=== PATIENT | male | born 1950 | race Caucasian/White ===

== ENCOUNTER → 2017-06-07 11:40 | Outpatient (CLI) | payer MEDICARE, OTHER, SELFPAY ==
[2017-06-07 13:32] LABS: PSA,Total- Diagnostic < 0.01 ng/mL (0.0-4.0)
== END ==
PROVIDERS: Family Provider Family Medicine Geriatric Medicine; PCP Family Medicine Geriatric Medicine; Visit Provider Urology
DX: C61 Malignant neoplasm of prostate (principal)
CPT/HCPCS: 36415; 84153

== ENCOUNTER → 2017-08-16 16:16 | Outpatient (CLI) | payer MEDICARE, OTHER, SELFPAY ==
[2017-08-16 16:53] LABS: Absolute Lymphocyte Count 0.72 X10^3/ul (0.83-4.51); Absolute Neutrophil Count 2.3 X10^3/uL (2.0-7.7); Basophil# 0.01 X10^3/uL; Basophil% 0.3 % (0-1); Eosinophil# 0.08 X10^3/uL; Eosinophils% 2.3 % (0-5); Hematocrit 39.5 % (40-54); Hemoglobin 12.8 g/dl (13.0-16.5); Lymphocyte # 0.72 X10^3/ul (4.0); Lymphocyte % 21.1 % (19-41); Mean Corp Hgb Conc 32.4 g/gl (32-36); Mean Corpuscular Hgb 30.9 pg (27.0-32.0); Mean Corpuscular Volume 95.4 fL (80-94); Mean Platelet Vol. 11.1 fl (6.2-12.0); Monocyte# 0.28 X10^3/uL; Monocyte% 8.2 % (0-10); Neutrophil # 2.32 X10^3/uL (2.7-7.7); Neutrophil % 67.8 % (47-70); Platelet Count 167 K/mm3 (150-450); RBC Distribution Width CV 13.8 % (11.6-14.6); RBC Distribution Width SD 46.1 fl (35.1-43.9); Red Blood Count 4.14 M/mm3 (4.6-6.2); White Blood Count 3.4 K/mm3 (4.4-11.0)
[2017-08-16 16:55] LABS: POSITIVE COUNT NO; POSITIVE DIFFERENTIAL NO; POSITIVE MORPHOLOGY NO
[2017-08-16 17:16] LABS: ALB/GLOB Ratio 1.1 RATIO (0.9-2.4); AST(SGOT) 20 U/L (15-37); Alanine Aminotransfer ALT/SGPT 25 U/L (16-61); Albumin, Serum 3.9 g/dL (3.2-5.0); Alkaline Phosphatase 116 U/L (45-117); Anion Gap 6 (5-15); BUN 20 mg/dL (7-18); BUN/Creat Ratio 23.6 RATIO (10-20); Calcium,Total 8.6 mg/dL (8.5-10.1); Chloride 105 mmol/L (98-107); Creatinine, Serum 0.85 mg/dL (0.70-1.30); EST Glomerular Filtration Rate 96 mL/min (>60); Est Glom Filt Rate - Afr Amer 117 mL/min (>60); Globulin 3.5 g/dL (2.2-4.2); Glucose 124 mg/dL (74-106); PSA,Total - Annual Screen < 0.01 ng/mL (0.00-4.00); Potassium 3.9 mmol/L (3.5-5.1); Protein, Total 7.4 g/dL (6.4-8.2); Sodium Level 141 mmol/L (136-145); Thyroid Stim Hormone (TSH) 1.37 uIU/mL (0.358-3.74)
[2017-08-16 17:32] LABS: Vitamin D,25 Hydroxy 24.1 ng/mL (29.95-100.01)
[2017-08-18 11:29] LABS: Hep C Antibodies <0.1 s/co ratio (0.0-0.9)
== END ==
PROVIDERS: Family Provider Family Medicine Geriatric Medicine; PCP Family Medicine Geriatric Medicine; Visit Provider Family Medicine Geriatric Medicine
DX: E55.9 Vitamin D deficiency, unspecified (principal); R53.83 Other fatigue; Z12.5 Encounter for screening for malignant neoplasm of prostate; Z13.89 Encounter for screening for other disorder
CPT/HCPCS: 36415; 80053; 82306; 84153; 84443; 85025; 86803; G0103

== ENCOUNTER → 2017-12-16 11:00 | Outpatient (CLI) | payer MEDICARE, OTHER, SELFPAY ==
[2017-12-16 12:45] LABS: PSA,Total- Diagnostic < 0.01 ng/mL (0.0-4.0)
== END ==
PROVIDERS: Family Provider Family Medicine Geriatric Medicine; PCP Family Medicine Geriatric Medicine; Visit Provider Urology
DX: C61 Malignant neoplasm of prostate (principal)
CPT/HCPCS: 36415; 84153

== ENCOUNTER → 2018-06-27 17:12 | Outpatient (CLI) | payer MEDICARE, OTHER, SELFPAY ==
[2017-12-07 09:16] VITALS: BMI 26.4
== END ==
PROVIDERS: Family Provider Family Medicine Geriatric Medicine; PCP Family Medicine Geriatric Medicine; Referring Provider Family Medicine Geriatric Medicine; Visit Provider Family Medicine Geriatric Medicine
DX: R68.83 Chills (without fever) (principal)
CPT/HCPCS: 87633

== ENCOUNTER → 2018-07-13 15:08 | Outpatient (CLI) | payer MEDICARE, OTHER, SELFPAY ==
[2017-12-07 09:16] VITALS: BMI 26.4
[2018-07-13 16:52] LABS: PSA,Total- Diagnostic < 0.01 ng/mL (0.0-4.0)
== END ==
PROVIDERS: Family Provider Family Medicine Geriatric Medicine; PCP Family Medicine Geriatric Medicine; Referring Provider Urology; Visit Provider Urology
DX: C61 Malignant neoplasm of prostate (principal)
CPT/HCPCS: 36415; 84153

== ENCOUNTER → 2018-10-08 | Outpatient (CLI) | payer MEDICARE, OTHER, SELFPAY ==
[2017-12-07 09:16] VITALS: BMI 26.4
[2018-10-08 12:23] LABS: Absolute Lymphocyte Count 1.01 X10^3/ul (0.83-4.51); Absolute Neutrophil Count 2.5 X10^3/uL (2.0-7.7); Basophil# 0.02 X10^3/uL; Basophil% 0.5 % (0-1); Eosinophil# 0.11 X10^3/uL; Eosinophils% 2.6 % (0-5); Hematocrit 43.2 % (40-54); Hemoglobin 14.2 g/dl (13.0-16.5); Lymphocyte # 1.01 X10^3/ul (4.0); Lymphocyte % 24.2 % (19-41); Mean Corp Hgb Conc 32.9 g/gl (32-36); Mean Corpuscular Hgb 30.9 pg (27.0-32.0); Mean Corpuscular Volume 94.1 fL (80-94); Mean Platelet Vol. 11.4 fl (6.2-12.0); Monocyte# 0.49 X10^3/uL; Monocyte% 11.8 % (0-10); Neutrophil # 2.53 X10^3/uL (2.7-7.7); Neutrophil % 60.7 % (47-70); Platelet Count 194 K/mm3 (150-450); RBC Distribution Width CV 13.7 % (11.6-14.6); RBC Distribution Width SD 47.4 fl (35.1-43.9); Red Blood Count 4.59 M/mm3 (4.6-6.2); White Blood Count 4.2 K/mm3 (4.4-11.0)
[2018-10-08 12:38] LABS: POSITIVE COUNT NO; POSITIVE DIFFERENTIAL NO; POSITIVE MORPHOLOGY NO
[2018-10-08 12:42] LABS: ALB/GLOB Ratio 1.1 RATIO (0.9-2.4); AST(SGOT) 21 U/L (15-37); Alanine Aminotransfer ALT/SGPT 34 U/L (16-61); Alkaline Phosphatase 109 U/L (45-117); Anion Gap 7 (5-15); BUN 24 mg/dL (7-18); BUN/Creat Ratio 26.4 RATIO (10-20); Calcium,Total 8.5 mg/dL (8.5-10.1); Chloride 103 mmol/L (98-107); Creatinine, Serum 0.91 mg/dL (0.70-1.30); EST Glomerular Filtration Rate 89 mL/min (>60); Est Glom Filt Rate - Afr Amer 107 mL/min (>60); Globulin 3.6 g/dL (2.2-4.2); Glucose 87 mg/dL (74-106); PSA,Total - Annual Screen < 0.01 ng/mL (0.00-4.00); Protein, Total 7.6 g/dL (6.4-8.2); Sodium Level 138 mmol/L (136-145); Thyroid Stim Hormone (TSH) 1.73 uIU/mL (0.358-3.74); Vitamin D,25 Hydroxy 23.4 ng/mL (29.95-100.01)
== END | disposition home or self-care (01) ==
LOC: POLAB3 09:18
PROVIDERS: Family Provider Family Medicine Geriatric Medicine; PCP Family Medicine Geriatric Medicine; Visit Provider Family Medicine Geriatric Medicine
DX: E55.9 Vitamin D deficiency, unspecified (principal); R53.83 Other fatigue; Z12.5 Encounter for screening for malignant neoplasm of prostate
CPT/HCPCS: 36415; 80053; 82306; 84153; 84443; 85025; G0103

== ENCOUNTER 2019-03-24 21:07 | Emergency (ER) | payer MEDICARE, OTHER, SELFPAY ==
[2018-12-11 08:41] VITALS: BMI 26.9
[2019-03-24] VITALS (8 sets, daily range): BP systolic 103–130; BP diastolic 73–92; PULSE 62–157; RESP 11–20; TEMP 36.6; O2SAT 95–99; BMI 25.9
--- NOTE | 2019-03-24 21:20 | ED.RN ---
rn called for ekg, pulled old ekgs for
--- NOTE | 2019-03-24 21:34 | RAD_ITS ---
HISTORY: PT ARRIVES TO ED FOR A-FIB. HX OF A-FIB. EXAM: XR Chest 1 View: COMPARISON: November 04, 2015 FINDINGS: # of images incl. paperwork: 2 No focal airspace disease is present. There appears to be a possibility of peripheral parenchymal pulmonary perfusion especially within the lung apices which may be suggestive of obstructive lung disease Heart is not enlarged. No acute osseous pathology perceived. Pulmonary vascularity is distinct. No effusions. RAD/Chest 1 View (Portable) IMPRESSION: No acute disease perceived. Possible obstructive lung disease. at 2225 Reported and signed by: Vitor Sommer MD Electronically Signed: Vitor Sommer MD at 22:24 EST Tel , Service support ,
--- NOTE | 2019-03-24 21:35 | EKG12_ITS ---
Test Reason : CARDIOVERSION Blood Pressure : / mmHG Vent. Rate : 070 BPM Atrial Rate : 070 BPM P-R Int : 178 ms QRS Dur : 080 ms QT Int : 380 ms P-R-T Axes : 057 012 011 degrees QTc Int : 410 ms Normal sinus rhythm Normal ECG Confirmed by DONNIE ROMERO, MARKUS ([id number]), editor book LILLY OVALLE ([id number]) on 03/25/2019 2:54:36 PM Referred By: KARTHIKEYAN Confirmed By:MARKUS FIELDS MD
[2019-03-24 21:52] LABS: Absolute Lymphocyte Count 1.19 X10^3/uL (0.83-4.51); Absolute Neutrophil Count 3.1 X10^3/uL (2.0-7.7); Basophil# 0.03 X10^3/uL; Basophil% 0.6 % (0-1); Hematocrit 43.7 % (40-54); Hemoglobin 14.5 g/dL (13.0-16.5); Lymphocyte # 1.19 X10^3/ul (4.0); Mean Corp Hgb Conc 33.2 g/dL (32-36); Mean Corpuscular Volume 93.6 fL (80-94); Mean Platelet Vol. 11.2 fl (6.2-12.0); Monocyte# 0.56 X10^3/uL; Monocyte% 11.3 % (0-10); NRBC Flagged by Analyzer 0 % (0-5); Neutrophil # 3.05 X10^3/uL (2.7-7.7); Neutrophil % 61.7 % (47-70); Platelet Count 157 K/mm3 (150-450); RBC Distribution Width CV 13.7 % (11.6-14.6); RBC Distribution Width SD 46.8 fl (35.1-43.9); Red Blood Count 4.67 M/mm3 (4.6-6.2)
[2019-03-24] MEDS: 0.9% Normal Saline 1,000 ML 150 ML IV (21:52)
[2019-03-24] MEDS: dilTIAZem 25 MG/5 ML Vial 20 MG IV BOLUS (21:52)
[2019-03-24 22:19] LABS: Anion Gap 6 (5-15); BUN 27 mg/dL (7-18); BUN/Creat Ratio 30.9 RATIO (10-20); Calcium,Total 8.6 mg/dL (8.5-10.1); Chloride 110 mmol/L (98-107); Creatinine, Serum 0.87 mg/dL (0.70-1.30); EST Glomerular Filtration Rate 92 mL/min (>60); Est Glom Filt Rate - Afr Amer 112 mL/min (>60); Estimated Creatinine Clearance 82.39 ml/min; Glucose 104 mg/dL (74-106); Potassium 3.8 mmol/L (3.5-5.1); Sodium Level 142 mmol/L (136-145)
--- NOTE | 2019-03-24 22:22 | ED.VISSUMM ---
- ER Visit Summary Date of Service: 03/24/19 Chief Complaint: [Palpitations] History of Present Illness: The patient is a 68 M [presents to the emergency department complaint palpitations that started around 7:45 PM. Patient states that he was unloading a truck at work when he started feeling like his heart was skipping beats. Patient denies any chest pain or shortness of breath that are urinary. He denies recent travel or surgery. Patient does have a history of paroxysmal A. fib. Patient is not anticoagulated. Patient did have some cold symptoms about a week ago and was using guaifenesin with codeine. His last episode of A. fib was about a year ago.] Physical Examination: [HEENT-PERRLA, EOMI. Cranial nerves II through XII grossly intact. TMs clear. Mucous membranes moist. No adenopathy. Cardiovascular-irregular without a murmur. Heart rate in the 150s. Lungs-clear to auscultation, chest wall stable without crepitus or subcu emphysema Abdomen-normoactive bowel sounds, soft, nontender, no rebound or rigidity, no peritoneal signs. Extremities-intact ?4, normal range of motion, normal pulses, atraumatic] Test Results: [EKG obtained on arrival showed atrial fibrillation with rapid ventricular response of 131 bpm. Patient had some nonspecific ST changes. CBC with differential shows a white count of 5.0, hemoglobin 14.5, hematocrit 44, platelets 157. Chemistries unremarkable. Troponin less than 0.015. Chest x-ray showed nothing acute.] Emergency Department Course and Treatment: [Patient on arrival was placed on a aeronautical engineering professor and he had an IV started with normal saline. Patient was given Cardizem 20 mg IV bolus which improved his heart rate into the 90s and low 100s. I discussed case with cardiology Dr. Santos Sutton who asked that I give patient a shot of Lovenox and cardiovert the patient.] Patient received propofol 80 mg for procedural sedation. Patient was cardioverted with 200 J synchronized. Patient returned to a sinus rhythm. Repeat EKG obtained showed a sinus rhythm. Treatment Plan: [Normal with cardiology. Patient advised to return if chest pain, shortness of breath, persistent palpitations and tachycardia, or conditions worsen anyway.] Disposition: Discharged home in stable condition. [] Impression: [Atrial fibrillation with rapid ventricular response Cardioversion to sinus rhythm in the emergency department Procedural sedation by ER physician] This note was generated with [employer] dictation software. It may contain incorrect words, spelling, and punctuation that were not noted in review of the chart prior to signing ED Disposition - Plan for ED Patient: Referrals: Ish Black Chi, MD [Primary Care Provider] -
[2019-03-24] MEDS: Enoxaparin 80 MG/0.8 ML Syringe SC (22:37)
--- NOTE | 2019-03-24 22:55 | EKG12_ITS ---
Test Reason : PALPATATIONS Blood Pressure : / mmHG Vent. Rate : 131 BPM Atrial Rate : 085 BPM P-R Int : 000 ms QRS Dur : 076 ms QT Int : 298 ms P-R-T Axes : 000 050 -15 degrees QTc Int : 440 ms Atrial fibrillation with rapid ventricular response ST & T wave abnormality, consider inferior ischemia Abnormal ECG Confirmed by DONNIE ROMERO, MARKUS ([id number]), meat dresser LILLY OVALLE ([id number]) on 03/25/2019 2:54:48 PM Referred By: MOLLY NAPIER Confirmed By:MARKUS FIELDS MD
--- NOTE | 2019-03-24 22:57 | ED.DEP ---
ED Disposition - Plan for ED Patient: Instructions: Atrial Fibrillation Referrals: Ish Black Chi, MD [Primary Care Provider] - Santos Sutton MD [STAFF PHYSICIAN] - 3-5 Days
[2019-03-24] MEDS: Propofol 200 MG/20 ML Vial IV BOLUS (22:58)
--- NOTE | 2019-03-24 22:58 | ED.DEP ---
ED Disposition - Plan for ED Patient: Instructions: Atrial Fibrillation, ED Procedural Sedation, (Adult) Referrals: Santos Sutton MD [STAFF PHYSICIAN] - 3-5 Days Ish Black Chi, MD [Primary Care Provider] -
== END 2019-03-24 23:49 | disposition home or self-care (01) ==
LOC: ED 21:45
PROVIDERS: Emergency Provider Emergency Medicine; Family Provider Family Medicine Geriatric Medicine; PCP Family Medicine Geriatric Medicine
DX: I48.91 Unspecified atrial fibrillation (principal); F41.9 Anxiety disorder, unspecified; Z79.82 Long term (current) use of aspirin; Z79.899 Other long term (current) drug therapy
CPT/HCPCS: 71045; 80048; 84484; 85025; 92960; 93005; 96361; 96372; 96374; 96375; 99284; J7030; A4216

== ENCOUNTER → 2019-04-09 16:20 | Outpatient (CLI) | payer MEDICARE, OTHER, SELFPAY ==
[2019-03-24 21:08] VITALS: BMI 25.9
[2019-04-09 17:10] LABS: Absolute Lymphocyte Count 0.92 X10^3/uL (0.83-4.51); Absolute Neutrophil Count 2.8 X10^3/uL (2.0-7.7); Basophil# 0.02 X10^3/uL; Basophil% 0.5 % (0-1); Eosinophil# 0.06 X10^3/uL; Eosinophils% 1.4 % (0-5); Hematocrit 40.3 % (40-54); Hemoglobin 13.1 g/dL (13.0-16.5); Lymphocyte # 0.92 X10^3/ul (4.0); Lymphocyte % 22.1 % (19-41); Mean Corp Hgb Conc 32.5 g/dL (32-36); Mean Corpuscular Hgb 30.7 pg (27.0-32.0); Mean Corpuscular Volume 94.4 fL (80-94); Mean Platelet Vol. 11.3 fl (6.2-12.0); Monocyte# 0.37 X10^3/uL; Monocyte% 8.9 % (0-10); NRBC Flagged by Analyzer 0 % (0-5); Neutrophil # 2.78 X10^3/uL (2.7-7.7); Neutrophil % 66.6 % (47-70); Platelet Count 158 K/mm3 (150-450); RBC Distribution Width CV 13.6 % (11.6-14.6); RBC Distribution Width SD 47.1 fl (35.1-43.9); Red Blood Count 4.27 M/mm3 (4.6-6.2); White Blood Count 4.2 K/mm3 (4.4-11.0)
[2019-04-09 17:36] LABS: ALB/GLOB Ratio 1.1 RATIO (0.9-2.4); AST(SGOT) 23 U/L (15-37); Alanine Aminotransfer ALT/SGPT 26 U/L (16-61); Albumin, Serum 3.9 g/dL (3.2-5.0); Alkaline Phosphatase 99 U/L (45-117); Anion Gap 5 (5-15); BUN 22 mg/dL (7-18); BUN/Creat Ratio 25.2 RATIO (10-20); Calcium,Total 8.6 mg/dL (8.5-10.1); Chloride 106 mmol/L (98-107); Creatinine, Serum 0.87 mg/dL (0.70-1.30); EST Glomerular Filtration Rate 93 mL/min (>60); Est Glom Filt Rate - Afr Amer 112 mL/min (>60); Globulin 3.5 g/dL (2.2-4.2); Glucose 115 mg/dL (74-106); Potassium 3.7 mmol/L (3.5-5.1); Protein, Total 7.4 g/dL (6.4-8.2); Sodium Level 140 mmol/L (136-145); Thyroid Stim Hormone (TSH) 1.27 uIU/mL (0.358-3.74)
[2019-04-09 17:48] LABS: Vitamin D,25 Hydroxy 19.5 ng/mL (29.95-100.01)
== END ==
PROVIDERS: Family Provider Family Medicine Geriatric Medicine; PCP Family Medicine Geriatric Medicine; Visit Provider Family Medicine Geriatric Medicine
DX: E55.9 Vitamin D deficiency, unspecified (principal); R53.83 Other fatigue
CPT/HCPCS: 36415; 80053; 82306; 84443; 85025

== ENCOUNTER 2019-07-26 17:03 | Emergency (ER) | payer MEDICARE, OTHER, SELFPAY ==
[2019-04-16 08:36] VITALS: BMI 25.9
[2019-07-26] VITALS (7 sets, daily range): BP systolic 94–143; BP diastolic 48–125; PULSE 62–136; RESP 13–18; TEMP 36.9; O2SAT 96–98; BMI 26.6
--- NOTE | 2019-07-26 17:07 | EKG12_ITS ---
Test Reason : REPEAT Blood Pressure : / mmHG Vent. Rate : 078 BPM Atrial Rate : 078 BPM P-R Int : 148 ms QRS Dur : 080 ms QT Int : 350 ms P-R-T Axes : 046 013 010 degrees QTc Int : 399 ms Normal sinus rhythm Normal ECG Confirmed by HETAL ROMERO, FRAN ([id number]), commissioning editor LILLY OVALLE ([id number]) on 07/30/2019 2:21:43 PM Referred By: DC Confirmed By:NATALY FONG MD
[2019-07-26] MEDS: Propofol 200 MG/20 ML Vial IV BOLUS (17:22)
--- NOTE | 2019-07-26 17:30 | ED.VISSUMM ---
- ER Visit Summary Date of Service: 07/26/19 Chief Complaint: A. fib History of Present Illness: The patient is a 69 M with atrial fibrillation. Patient has a history of paroxysmal atrial fibrillation. His symptoms started today around 12 PM. He is not currently on anticoagulation, just aspirin, but he was previously on an oral anticoagulation agent for atrial fibrillation. His physician office called to advise he would be coming to the ED and they advised synchronized cardioversion and starting on Eliquis. Physical Examination: Afebrile and vital signs unremarkable except for heart rate of 133. Heart is irregularly irregular. Lungs are clear. Skin appears normal. Good mental status. Test Results: EKG showed atrial fibrillation at a rate of 138. CBC, metabolic panel, troponin performed. Emergency Department Course and Treatment: Patient gave written consent for sedation and synchronized cardioversion. He was sedated with 50 mg of propofol. He had no desaturations or abnormal vital signs. He woke up spontaneously. He was cardioverted with 150 J. This was successful after one attempt. He was in sinus rhythm. His repeat EKG showed sinus rhythm at a rate of 78. No sign of ischemia or infarction pattern. Normal vitals. Patient will be discharged on a course of Eliquis. Follow-up with cardiology. Treatment Plan: As above Disposition: Discharge Impression: Atrial fibrillation with RVR This note was generated with [employer] dictation software. It may contain incorrect words, spelling, and punctuation that were not noted in review of the chart prior to signing ED Disposition - Plan for ED Patient: Referrals: Ish Black Chi, MD [Primary Care Provider] -
[2019-07-26 17:34] LABS: Absolute Lymphocyte Count 1.48 X10^3/uL (0.83-4.51); Absolute Neutrophil Count 3.8 X10^3/uL (2.0-7.7); Basophil# 0.05 X10^3/uL; Basophil% 0.8 % (0-1); Eosinophil# 0.14 X10^3/uL; Eosinophils% 2.2 % (0-5); Hematocrit 44.2 % (40-54); Hemoglobin 14.4 g/dL (13.0-16.5); Lymphocyte # 1.48 X10^3/ul (4.0); Lymphocyte % 23.6 % (19-41); Mean Corp Hgb Conc 32.6 g/dL (32-36); Mean Corpuscular Hgb 30.9 pg (27.0-32.0); Mean Corpuscular Volume 94.8 fL (80-94); Mean Platelet Vol. 11.2 fl (6.2-12.0); Monocyte# 0.76 X10^3/uL; Monocyte% 12.1 % (0-10); NRBC Flagged by Analyzer 0 % (0-5); Neutrophil # 3.79 X10^3/uL (2.7-7.7); Neutrophil % 60.3 % (47-70); Platelet Count 199 K/mm3 (150-450); RBC Distribution Width CV 13.5 % (11.6-14.6); Red Blood Count 4.66 M/mm3 (4.6-6.2); White Blood Count 6.3 K/mm3 (4.4-11.0)
[2019-07-26 17:37] LABS: Anion Gap 4 (5-15); BUN 24 mg/dL (7-18); BUN/Creat Ratio 20.2 RATIO (10-20); Calcium,Total 8.8 mg/dL (8.5-10.1); Chloride 109 mmol/L (98-107); Creatinine, Serum 1.19 mg/dL (0.70-1.30); EST Glomerular Filtration Rate 65 mL/min (>60); Est Glom Filt Rate - Afr Amer 78 mL/min (>60); Estimated Creatinine Clearance 55.55 ml/min; Glucose 88 mg/dL (74-106); Potassium 4.3 mmol/L (3.5-5.1); Sodium Level 142 mmol/L (136-145)
--- NOTE | 2019-07-26 17:42 | ED.DEP ---
ED Disposition - Plan for ED Patient: Instructions: ED AFIB Prescriptions: Apixaban [Eliquis] 5 mg PO BID #60 tab Prescription Printed Referrals: Ish Black Chi, MD [Primary Care Provider] -
--- NOTE | 2019-07-26 18:46 | EKG12_ITS ---
Test Reason : AFIB Blood Pressure : / mmHG Vent. Rate : 138 BPM Atrial Rate : 163 BPM P-R Int : 000 ms QRS Dur : 072 ms QT Int : 252 ms P-R-T Axes : 000 036 -09 degrees QTc Int : 381 ms Atrial fibrillation Abnormal ECG Confirmed by HETAL ROMERO, FRAN ([id number]), technical editor LILLY OVALLE ([id number]) on 07/30/2019 2:21:56 PM Referred By: DC Confirmed By:NATALY FONG MD
[2019-07-26] MEDS: APIXABAN 5 MG TABLET PO (18:51)
== END 2019-07-26 19:21 | disposition home or self-care (01) ==
LOC: ED 18:10
PROVIDERS: Emergency Provider Emergency Medicine; PCP Family Medicine Geriatric Medicine
DX: I48.0 Paroxysmal atrial fibrillation (principal); Z79.82 Long term (current) use of aspirin
CPT/HCPCS: 80048; 84484; 85025; 92960; 93005; 99285; J7030; A4216

== ENCOUNTER → 2019-07-29 15:39 | Outpatient (CLI) | payer MEDICARE, OTHER, SELFPAY ==
[2019-07-26 17:04] VITALS: BMI 26.6
--- NOTE | 2019-07-29 16:00 | RAD_ITS ---
STUDY: X-RAY - ABDOMEN/PELVIS REASON FOR EXAM: Male, 69 years old. Abdominal pain. TECHNIQUE: Single AP view of the abdomen / pelvis. COMPARISON: March 13, 2017 FINDINGS: Normal visualized lung bases. There is an abundance of fecal material throughout the colon. There is no demonstrated free abdominal air. There is a punctate calcification projected over the left psoas muscle. There is postoperative change overlying the pelvis. Normal soft tissue structures. Normal visualized osseous structures. RAD/Abd Inc Decub and/or Erect IMPRESSION: Moderate stool in the colon. Possible punctate stone in the left ureter versus vascular calcification. Recommend correlation with any renal colic. Electronically Signed: Josselyn Hadley MD at 1:06 EDT Tel , Service support ,
== END ==
PROVIDERS: PCP Family Medicine Geriatric Medicine; Referring Provider Family Medicine Geriatric Medicine; Visit Provider Family Medicine Geriatric Medicine
DX: R10.9 Unspecified abdominal pain (principal)
CPT/HCPCS: 74019

== ENCOUNTER → 2019-10-02 14:14 | Outpatient (CLI) | payer MEDICARE, OTHER, SELFPAY ==
[2019-08-26 16:11] VITALS: BMI 26.6
[2019-10-02 15:50] LABS: PSA,Total- Diagnostic < 0.01 ng/mL (0.0-4.0)
== END ==
PROVIDERS: PCP Family Medicine Geriatric Medicine; Referring Provider Urology; Visit Provider Urology
DX: C61 Malignant neoplasm of prostate (principal)
CPT/HCPCS: 36415; 84153

== ENCOUNTER → 2019-10-10 16:44 | Outpatient (CLI) | payer MEDICARE, OTHER, SELFPAY ==
[2019-08-26 16:11] VITALS: BMI 26.6
[2019-10-10 17:30] LABS: Absolute Lymphocyte Count 1.01 X10^3/uL (0.83-4.51); Basophil# 0.03 X10^3/uL; Basophil% 0.6 % (0-1); Eosinophil# 0.08 X10^3/uL; Eosinophils% 1.7 % (0-5); Hemoglobin 13.9 g/dL (13.0-16.5); Lymphocyte # 1.01 X10^3/ul (4.0); Lymphocyte % 21.5 % (19-41); Mean Corp Hgb Conc 33.9 g/dL (32-36); Mean Corpuscular Volume 94.5 fL (80-94); Mean Platelet Vol. 10.9 fl (6.2-12.0); Monocyte# 0.54 X10^3/uL; Monocyte% 11.5 % (0-10); NRBC Flagged by Analyzer 0 % (0-5); Neutrophil # 2.96 X10^3/uL (2.7-7.7); Platelet Count 187 K/mm3 (150-450); RBC Distribution Width CV 12.9 % (11.6-14.6); RBC Distribution Width SD 44.5 fl (35.1-43.9); Red Blood Count 4.34 M/mm3 (4.6-6.2); White Blood Count 4.7 K/mm3 (4.4-11.0)
[2019-10-10 17:55] LABS: Vitamin D,25 Hydroxy 25.5 ng/mL
[2019-10-10 17:58] LABS: ALB/GLOB Ratio 1.1 RATIO (0.9-2.4); AST(SGOT) 19 U/L (15-37); Alanine Aminotransfer ALT/SGPT 30 U/L (16-61); Albumin, Serum 3.8 g/dL (3.2-5.0); Alkaline Phosphatase 105 U/L (45-117); Anion Gap 6 (5-15); BUN 22 mg/dL (7-18); BUN/Creat Ratio 25.7 RATIO (10-20); Calcium,Total 8.6 mg/dL (8.5-10.1); Chloride 103 mmol/L (98-107); Creatinine, Serum 0.86 mg/dL (0.70-1.30); EST Glomerular Filtration Rate 94 mL/min (>60); Est Glom Filt Rate - Afr Amer 114 mL/min (>60); Globulin 3.6 g/dL (2.2-4.2); Glucose 80 mg/dL (74-106); Potassium 4.4 mmol/L (3.5-5.1); Protein, Total 7.4 g/dL (6.4-8.2); Sodium Level 139 mmol/L (136-145); Thyroid Stim Hormone (TSH) 1.89 uIU/mL (0.358-3.74)
== END ==
PROVIDERS: PCP Family Medicine Geriatric Medicine; Visit Provider Family Medicine Geriatric Medicine
DX: E55.9 Vitamin D deficiency, unspecified (principal); R53.83 Other fatigue
CPT/HCPCS: 36415; 80053; 82306; 84443; 85025

== ENCOUNTER → 2020-05-11 15:39 | Outpatient (CLI) | payer MEDICARE, OTHER, SELFPAY ==
[2019-12-19 16:23] VITALS: BMI 25.7
[2020-05-11 17:30] LABS: Absolute Neutrophil Count 2.5 X10^3/uL (2.0-7.7); Basophil# 0.03 X10^3/uL; Basophil% 0.8 % (0-1); Eosinophil# 0.06 X10^3/uL; Eosinophils% 1.5 % (0-5); Hemoglobin 13.3 g/dL (13.0-16.5); Mean Corp Hgb Conc 32.4 g/dL (32-36); Mean Corpuscular Hgb 30.5 pg (27.0-32.0); Mean Platelet Vol. 11.3 fl (6.2-12.0); Monocyte# 0.38 X10^3/uL; Monocyte% 9.7 % (0-10); NRBC Flagged by Analyzer 0 % (0-5); Neutrophil # 2.52 X10^3/uL (2.7-7.7); Neutrophil % 64.5 % (47-70); Platelet Count 187 K/mm3 (150-450); RBC Distribution Width CV 13.2 % (11.6-14.6); RBC Distribution Width SD 45.2 fl (35.1-43.9); Red Blood Count 4.36 M/mm3 (4.6-6.2); White Blood Count 3.9 K/mm3 (4.4-11.0)
[2020-05-11 17:55] LABS: ALB/GLOB Ratio 1.1 RATIO (0.9-2.4); AST(SGOT) 26 U/L (15-37); Alanine Aminotransfer ALT/SGPT 32 U/L (16-61); Albumin, Serum 3.7 g/dL (3.2-5.0); Alkaline Phosphatase 105 U/L (45-117); Anion Gap 6 (5-15); BUN 22 mg/dL (7-18); BUN/Creat Ratio 21.8 RATIO (10-20); Calcium,Total 8.3 mg/dL (8.5-10.1); Chloride 104 mmol/L (98-107); Creatinine, Serum 1.01 mg/dL (0.70-1.30); EST Glomerular Filtration Rate 78 mL/min (>60); Est Glom Filt Rate - Afr Amer 94 mL/min (>60); Globulin 3.4 g/dL (2.2-4.2); Glucose 107 mg/dL (74-106); PSA,Total - Annual Screen < 0.01 ng/mL (0.00-4.00); Potassium 3.9 mmol/L (3.5-5.1); Protein, Total 7.1 g/dL (6.4-8.2); Sodium Level 138 mmol/L (136-145); Thyroid Stim Hormone (TSH) 1.18 uIU/mL (0.358-3.74)
[2020-05-11 18:05] LABS: Vitamin D,25 Hydroxy 13.9 ng/mL
== END ==
PROVIDERS: PCP Family Medicine Geriatric Medicine; Visit Provider Family Medicine Geriatric Medicine
DX: E55.9 Vitamin D deficiency, unspecified (principal); R53.83 Other fatigue; Z12.5 Encounter for screening for malignant neoplasm of prostate
CPT/HCPCS: 36415; 80053; 82306; 84153; 84443; 85025; G0103

== ENCOUNTER 2020-05-19 21:16 | Emergency (ER) | payer MEDICARE, OTHER, SELFPAY ==
[2019-12-19 16:23] VITALS: BMI 25.7
[2020-05-19 21:16] VITALS: BP 133/88; PULSE 73; RESP 16; TEMP 36.2; O2SAT 97; BMI 28.5
--- NOTE | 2020-05-19 21:25 | EKG12_ITS ---
Test Reason : CP Blood Pressure : / mmHG Vent. Rate : 072 BPM Atrial Rate : 072 BPM P-R Int : 160 ms QRS Dur : 080 ms QT Int : 374 ms P-R-T Axes : 037 -15 006 degrees QTc Int : 409 ms Normal sinus rhythm Normal ECG Confirmed by LOBO ROMERO, JOSE M ([id number]), supervising editor news reel GUILLAUME VELASQUEZ ([id number]) on 05/20/2020 10:45:28 AM Referred By: CHUCK Confirmed By:JOSE M DIAMOND MD
[2020-05-19 21:37] LABS: Absolute Lymphocyte Count 0.98 X10^3/uL (0.83-4.51); Absolute Neutrophil Count 3.6 X10^3/uL (2.0-7.7); Basophil# 0.03 X10^3/uL; Basophil% 0.6 % (0-1); Eosinophil# 0.07 X10^3/uL; Eosinophils% 1.4 % (0-5); Hematocrit 42.6 % (40-54); Hemoglobin 14.1 g/dL (13.0-16.5); Lymphocyte # 0.98 X10^3/ul (4.0); Lymphocyte % 19.3 % (19-41); Mean Corp Hgb Conc 33.1 g/dL (32-36); Mean Corpuscular Hgb 30.8 pg (27.0-32.0); Mean Platelet Vol. 10.3 fl (6.2-12.0); Monocyte# 0.43 X10^3/uL; Monocyte% 8.4 % (0-10); NRBC Flagged by Analyzer 0 % (0-5); Neutrophil # 3.55 X10^3/uL (2.7-7.7); Neutrophil % 69.7 % (47-70); Platelet Count 188 K/mm3 (150-450); RBC Distribution Width SD 44.4 fl (35.1-43.9); Red Blood Count 4.58 M/mm3 (4.6-6.2); White Blood Count 5.1 K/mm3 (4.4-11.0)
[2020-05-19 21:54] LABS: Anion Gap 3 (5-15); BUN 21 mg/dL (7-18); BUN/Creat Ratio 24.4 RATIO (10-20); Calcium,Total 8.7 mg/dL (8.5-10.1); Chloride 105 mmol/L (98-107); Creatinine, Serum 0.86 mg/dL (0.70-1.30); EST Glomerular Filtration Rate 94 mL/min (>60); Est Glom Filt Rate - Afr Amer 113 mL/min (>60); Estimated Creatinine Clearance 74.19 ml/min; Glucose 93 mg/dL (74-106); Magnesium 2.1 mg/dL (1.6-2.6); Potassium 3.9 mmol/L (3.5-5.1); Sodium Level 138 mmol/L (136-145)
--- NOTE | 2020-05-19 21:55 | RAD_ITS ---
HISTORY: CHEST PAIN WORSE WITH DEEP BREATH. HX OF PROSTATE CANCER. HX OF AFIB EXAM: XR Chest 1 View: COMPARISON: March 24, 2019 FINDINGS: # of images incl. paperwork: 1 Interlobular septal thickening within the left lower lobe is the same. Lungs are clear. Heart is not enlarged. No acute osseous pathology perceived. Pulmonary vascularity is distinct. No effusions. RAD/Chest 1 View (Portable) IMPRESSION: No acute cardiopulmonary disease perceived. at 2205 Reported and signed by: Vitor Sommer MD Electronically Signed: Vitor Sommer MD at 22:03 EST Tel , Service support ,
--- NOTE | 2020-05-19 21:55 | ED.VIS.GEN ---
History of Present Illness Chief Complaint: Chest Pain Informant: Patient Narrative: Patient is a 69-year-old male with a past medical history of A. fib not on anticoagulation, prostate cancer in remission who presents to the emergency department for pleuritic chest pain. It is over the left anterior chest wall. Started earlier today. He has never had this before. Deep breaths do make it worse as well as certain movements. At rest he does have pain that he rates as a 4 out of 10. He did take ibuprofen prior to coming in which did give him some relief. He denies any significant shortness of breath with this. Denies any leg swelling or calf pain. No history of DVT/PE. Denies any recent cough or fever/chills. He denies any history of CAD. No abdominal pain or nausea/vomiting associate with this. No pain in his back. No recent surgeries or prolonged periods of immobilization. Past Medical History - Allergies and Home Meds Allergies/Adverse Reactions: Allergies sulfamethoxazole [From Septra] Allergy (Verified 12/19/19 16:23) PT UNSURE OF REACTION trimethoprim [From Septra] Allergy (Verified 12/19/19 16:23) PT UNSURE OF REACTION Primary Care Physician: Ish Black Chi, MD [Primary Care Provider] - 3-5 Days if not improving Prior records reviewed: Yes Past Medical History: - - Atrial fibrillation Surgical History: TURP - Bladder surgery additionally., - Smoking Status: Never smoker - Family History Paternal Family History: Family History (Last Reviewed 12/19/19 @ 16:23 by Gisella Villafana) Father Cancer Mother Cancer Family History: Reports: Cancer - Esophageal cancer Maternal Family History: Family History (Last Reviewed 12/19/19 @ 16:23 by Gisella Villafana) Father Cancer Mother Cancer Family History: Reports: No pertinent history Review of Systems All systems negative except as indicated General: Denies: Chills, Fever, Sweats Eyes: Denies: Visual changes - bilaterally, Diplopia ENT: Denies: Rhinorrhea, Sore throat Cardiovascular: Reports: Chest pain. Denies: Palpitations Respiratory: Denies: Dyspnea, Cough, Dyspnea on exertion Gastrointestinal: Denies: Abdominal pain, Nausea, Vomiting, Diarrhea, Melena, Hematochezia Musculoskeletal: Denies: Back pain, Extremity Pain Skin: Denies: Rash, Wounds Neurological: Denies: Headache, Weakness, Numbness Physical Exam Vital Signs/Narrative: Vital Signs Temp Pulse Resp BP Pulse Ox 05/19/20 21:16 97.1 F L 73 16 133/88 H 97 Inital Vital Signs reviewed: Yes General: Well nourished, Well developed, No Acute Distress Head: Normocephalic, Atraumatic Eyes: Perrl, EOMI ENT: Moist mucous membranes, No rhinorrhea Neck: Supple, Nontender Cardiovascular: Regular rate, Regular rhythm, No murmurs Respiratory: No distress, CTA bilaterally, Chest nontender Abdomen: Soft, Nontender, Nondistended, Normal bowel sounds Back: Nontender, Normal Inspection Extremities: Nontender, No edema. Negative for: Calf Tenderness Skin: Normal color, No rash Neurological: Alert, Oriented x3, Cranial nerves II-XII grossly intact, Normal Strength, Normal Sensation Psychological: Normal affect, Normal Mood Diagnostic/Tx/Re-eval - EKG Initial EKG Interpretation: - - Rate of 72 bpm. Normal intervals. Normal axis. S1Q3T3 pattern. No significant ST elevations or depressions. - Medical Decision Making Patient presents to the emergency department for pleuritic chest pain. Upon arrival to the emergency department he is satting well on room air. Is not tachycardic. No respiratory distress. Will check basic lab work, EKG and chest x-ray. He has no risk factors for PE but given the fact it is pleuritic and nonreproducible we will do a CT scan of the chest to rule out pulmonary embolism. Patient's lab work-up did not reveal any significant acute abnormality. Troponin is negative. CT scan of the chest did not show any evidence of acute pulmonary embolism. There were groundglass opacities concerning for viral pneumonia. He is swab for coronavirus. States he has known sick contacts at his work. I did offer to perform a second troponin test and discussed reasoning for this but patient is declining states he will come back if any of his symptoms get worse. His pleuritic chest pain could be related to the Covid infection. Did recommend symptomatic treatment otherwise with Tylenol and ibuprofen. Return precautions are reviewed including any significant shortness of breath. If this test comes back positive he needs to quarantine. He is to quarantine until this results. Did recommend he get a pulse oximeter to keep an eye on his oxygen saturations in the meantime. He is agreeable with this plan. Discharged home in stable condition. All questions were answered. ED Disposition - Plan for ED Patient: Disposition: Home or Assisted Living Diagnosis: Chest pain Instructions: Coronavirus Disease 2019 (COVID-19): Caring for Yourself or Others, ED Chest Pain, Uncertain Cause Referrals: Ish Black Chi, MD [Primary Care Provider] - 3-5 Days if not improving
--- NOTE | 2020-05-19 22:08 | CT_ITS ---
HISTORY: CHEST PAIN. WORSE ON INHALATION TECHNIQUE: Helically acquired images were obtained of the chest following the intravenous administration of 100 ML of Isovue-370 Iodinated contrast. as per pulmonary angiogram protocol with 2D without 3-D MIP reconstructions. A radiation dose optimization technique was used for this scan. COMPARISON: Chest x-ray comparison is from less than 30 minutes earlier FINDINGS: # of images incl. paperwork: 1172 Trace dependent basilar atelectasis. There are a few additional areas of rounded groundglass opacity within all 5 lobes.. No effusions. Within the thoracic spinethere is a gentle dextroscoliosis at the thoracolumbar junction but could just be positioning.. There are transitional cervical thoracic ribs at C7, there are tiny ribs at T12. There are large transverse processes that L1. This is normal developmental variability. Vertebral body height is normal. Facets are well aligned. No rib lesions are perceived. Heart is not enlarged. Thoracic aorta is normal. No aneurysms, stenoses, dissections, nor occlusions. No axillary or mediastinal adenopathy. No pulmonary emboli. Visualized portions of the upper abdomen are without identified acute pathology. CT/CTA Chest W/WO Contrast IMPRESSION: No pulmonary embolism, aortic aneurysm, or aortic dissection. Subtle, mild groundglass opacity areas within all 5 lobes of the lungs. This may represent early pneumonia, including Covid 19. Individualized dose optimization techniques were used for this CT. at 2245 Reported and signed by: Vitor Sommer MD Electronically Signed: Vitor Sommer MD at 22:44 EST Tel , Service support ,
[2020-05-19 23:28] VITALS: BP 141/99; PULSE 69; RESP 20; O2SAT 96
== END 2020-05-19 23:33 | disposition home or self-care (01) ==
PROVIDERS: Emergency Provider Emergency Medicine; PCP Family Medicine Geriatric Medicine
DX: R07.9 Chest pain, unspecified (principal); Z79.82 Long term (current) use of aspirin
CPT/HCPCS: 71045; 71275; 80048; 83735; 84484; 85025; 87635; 93005; 99284; Q9967; U0003

== ENCOUNTER → 2020-10-12 10:35 | Outpatient (CLI) | payer MEDICARE, OTHER, SELFPAY ==
[2020-06-09 07:56] VITALS: BMI 26.9
[2020-10-12 12:29] LABS: Absolute Neutrophil Count 2.3 X10^3/uL (2.0-7.7); Basophil# 0.04 X10^3/uL; Basophil% 1.1 % (0-1); Eosinophil# 0.08 X10^3/uL; Eosinophils% 2.2 % (0-5); Hematocrit 39.7 % (40-54); Hemoglobin 13.2 g/dL (13.0-16.5); Lymphocyte % 24.2 % (19-41); Mean Corp Hgb Conc 33.2 g/dL (32-36); Mean Corpuscular Hgb 30.9 pg (27.0-32.0); Mean Platelet Vol. 11.4 fl (6.2-12.0); Monocyte% 10.8 % (0-10); NRBC Flagged by Analyzer 0 % (0-5); Neutrophil # 2.27 X10^3/uL (2.7-7.7); Neutrophil % 60.9 % (47-70); Platelet Count 169 K/mm3 (150-450); RBC Distribution Width CV 13.1 % (11.6-14.6); RBC Distribution Width SD 44.2 fl (35.1-43.9); Red Blood Count 4.27 M/mm3 (4.6-6.2); White Blood Count 3.7 K/mm3 (4.4-11.0)
[2020-10-12 12:41] LABS: Vitamin D,25 Hydroxy 26.3 ng/mL
[2020-10-12 12:43] LABS: ALB/GLOB Ratio 1.1 RATIO (0.9-2.4); AST(SGOT) 24 U/L (15-37); Alanine Aminotransfer ALT/SGPT 29 U/L (16-61); Albumin, Serum 3.8 g/dL (3.2-5.0); Alkaline Phosphatase 115 U/L (45-117); Anion Gap 6 (5-15); BUN 22 mg/dL (7-18); BUN/Creat Ratio 27.8 RATIO (10-20); Calcium,Total 8.4 mg/dL (8.5-10.1); Chloride 107 mmol/L (98-107); Creatinine, Serum 0.79 mg/dL (0.70-1.30); EST Glomerular Filtration Rate 103 mL/min (>60); Est Glom Filt Rate - Afr Amer 125 mL/min (>60); Globulin 3.4 g/dL (2.2-4.2); Glucose 108 mg/dL (74-106); Potassium 4.1 mmol/L (3.5-5.1); Protein, Total 7.2 g/dL (6.4-8.2); Sodium Level 139 mmol/L (136-145); Thyroid Stim Hormone (TSH) 3.23 uIU/mL (0.358-3.74)
== END ==
PROVIDERS: PCP Family Medicine Geriatric Medicine; Visit Provider Family Medicine Geriatric Medicine
DX: E55.9 Vitamin D deficiency, unspecified (principal); R53.83 Other fatigue; Z12.5 Encounter for screening for malignant neoplasm of prostate
CPT/HCPCS: 36415; 80053; 82306; 84443; 85025

== ENCOUNTER → 2021-02-11 08:27 | Outpatient (CLI) | payer MEDICARE, OTHER, SELFPAY | PROVIDERS: PCP Family Medicine Geriatric Medicine; Referring Provider Family Medicine Geriatric Medicine; Visit Provider Family Medicine Geriatric Medicine | DX: U07.1 COVID-19 (principal) | CPT/HCPCS: 87635; 87804; 87807; C9803; U0005; U0003 ==

== ENCOUNTER → 2021-04-14 15:54 | Outpatient (CLI) | payer MEDICARE, OTHER, SELFPAY ==
[2021-04-14 16:55] LABS: Absolute Lymphocyte Count 0.83 X10^3/uL (0.83-4.51); Absolute Neutrophil Count 4.1 X10^3/uL (2.0-7.7); Basophil# 0.03 X10^3/uL; Basophil% 0.5 % (0-1); Eosinophil# 0.06 X10^3/uL; Eosinophils% 1.1 % (0-5); Hematocrit 40.7 % (40-54); Hemoglobin 13.8 g/dL (13.0-16.5); Lymphocyte # 0.83 X10^3/ul (0.83-4.51); Lymphocyte % 15.1 % (19-41); Mean Corp Hgb Conc 33.9 g/dL (32-36); Mean Corpuscular Hgb 31.2 pg (27.0-32.0); Mean Corpuscular Volume 91.9 fL (80-94); Monocyte% 7.3 % (0-10); NRBC Flagged by Analyzer 0 % (0-5); Neutrophil # 4.14 X10^3/uL (2.7-7.7); Neutrophil % 75.5 % (47-70); Platelet Count 190 K/mm3 (150-450); RBC Distribution Width CV 13.7 % (11.6-14.6); RBC Distribution Width SD 46.3 fl (35.1-43.9); Red Blood Count 4.43 M/mm3 (4.6-6.2); White Blood Count 5.5 K/mm3 (4.4-11.0)
[2021-04-14 17:00] LABS: Vitamin D,25 Hydroxy 21.3 ng/mL
[2021-04-14 17:04] LABS: ALB/GLOB Ratio 0.9 RATIO (0.9-2.4); AST(SGOT) 20 U/L (15-37); Alanine Aminotransfer ALT/SGPT 35 U/L (16-61); Albumin, Serum 3.6 g/dL (3.2-5.0); Alkaline Phosphatase 107 U/L (45-117); Anion Gap 10 (5-15); BUN 24 mg/dL (7-18); BUN/Creat Ratio 29.9 RATIO (10-20); Calcium,Total 8.8 mg/dL (8.5-10.1); Chloride 104 mmol/L (98-107); EST Glomerular Filtration Rate 101 mL/min (>60); Est Glom Filt Rate - Afr Amer 123 mL/min (>60); Globulin 3.8 g/dL (2.2-4.2); Glucose 114 mg/dL (74-106); Potassium 3.6 mmol/L (3.5-5.1); Protein, Total 7.4 g/dL (6.4-8.2); Sodium Level 141 mmol/L (136-145); Thyroid Stim Hormone (TSH) 1.42 uIU/mL (0.358-3.74)
== END ==
PROVIDERS: PCP Family Medicine Geriatric Medicine; Visit Provider Family Medicine Geriatric Medicine
DX: E55.9 Vitamin D deficiency, unspecified (principal); R53.83 Other fatigue
CPT/HCPCS: 36415; 80053; 82306; 84443; 85025

== ENCOUNTER → 2021-10-14 | Outpatient (CLI) | payer MEDICARE, OTHER, SELFPAY ==
[2021-10-14 12:01] LABS: Absolute Lymphocyte Count 0.97 X10^3/uL (0.83-4.51); Absolute Neutrophil Count 2.5 X10^3/uL (2.0-7.7); Basophil# 0.03 X10^3/uL; Basophil% 0.8 % (0-1); Eosinophil# 0.06 X10^3/uL; Eosinophils% 1.5 % (0-5); Hematocrit 40.5 % (40-54); Hemoglobin 13.5 g/dL (13.0-16.5); Lymphocyte # 0.97 X10^3/ul (0.83-4.51); Lymphocyte % 24.4 % (19-41); Mean Corp Hgb Conc 33.3 g/dL (32-36); Mean Corpuscular Hgb 30.6 pg (27.0-32.0); Mean Corpuscular Volume 91.8 fL (80-94); Mean Platelet Vol. 11.1 fl (6.2-12.0); Monocyte# 0.41 X10^3/uL; Monocyte% 10.3 % (0-10); NRBC Flagged by Analyzer 0 % (0-5); Neutrophil # 2.48 X10^3/uL (2.7-7.7); Neutrophil % 62.2 % (47-70); Platelet Count 179 K/mm3 (150-450); RBC Distribution Width CV 13.6 % (11.6-14.6); RBC Distribution Width SD 46.2 fl (35.1-43.9); Red Blood Count 4.41 M/mm3 (4.6-6.2)
[2021-10-14 12:16] LABS: Vitamin D,25 Hydroxy 29.8 ng/mL
[2021-10-14 12:24] LABS: AST(SGOT) 20 U/L (15-37); Alanine Aminotransfer ALT/SGPT 28 U/L (16-61); Albumin, Serum 3.7 g/dL (3.2-5.0); Alkaline Phosphatase 96 U/L (45-117); Anion Gap 6 (5-15); BUN 25 mg/dL (7-18); BUN/Creat Ratio 29.2 RATIO (10-20); Calcium,Total 8.7 mg/dL (8.5-10.1); Chloride 107 mmol/L (98-107); Creatinine, Serum 0.86 mg/dL (0.70-1.30); EST Glomerular Filtration Rate 94 mL/min (>60); Est Glom Filt Rate - Afr Amer 114 mL/min (>60); Globulin 3.7 g/dL (2.2-4.2); Glucose 88 mg/dL (74-106); PSA,Total - Annual Screen 0.04 ng/mL (0.00-4.00); Potassium 3.7 mmol/L (3.5-5.1); Protein, Total 7.4 g/dL (6.4-8.2); Sodium Level 140 mmol/L (136-145); Thyroid Stim Hormone (TSH) 1.47 uIU/mL (0.358-3.74)
== END | disposition home or self-care (01) ==
LOC: POLAB3 08:54
PROVIDERS: PCP Family Medicine Geriatric Medicine; Visit Provider Family Medicine Geriatric Medicine
DX: E55.9 Vitamin D deficiency, unspecified (principal); R53.83 Other fatigue; Z12.5 Encounter for screening for malignant neoplasm of prostate
CPT/HCPCS: 36415; 80053; 82306; 84153; 84443; 85025; G0103

== ENCOUNTER → 2022-04-14 | Outpatient (CLI) | payer MEDICARE, OTHER, SELFPAY ==
[2022-04-14 13:13] LABS: Absolute Neutrophil Count 2.6 X10^3/uL (2.0-7.7); Basophil# 0.03 X10^3/uL; Basophil% 0.8 % (0-1); Eosinophil# 0.07 X10^3/uL; Eosinophils% 1.8 % (0-5); Hematocrit 41.3 % (40-54); Hemoglobin 14.2 g/dL (13.0-16.5); Lymphocyte % 20.8 % (19-41); Mean Corp Hgb Conc 34.4 g/dL (32-36); Mean Corpuscular Hgb 31.1 pg (27.0-32.0); Mean Corpuscular Volume 90.4 fL (80-94); Mean Platelet Vol. 11.5 fl (6.2-12.0); Monocyte# 0.29 X10^3/uL; Monocyte% 7.6 % (0-10); NRBC Flagged by Analyzer 0 % (0-5); Neutrophil # 2.64 X10^3/uL (2.7-7.7); Neutrophil % 68.7 % (47-70); Platelet Count 174 K/mm3 (150-450); RBC Distribution Width CV 13.2 % (11.6-14.6); RBC Distribution Width SD 43.4 fl (35.1-43.9); Red Blood Count 4.57 M/mm3 (4.6-6.2); White Blood Count 3.8 K/mm3 (4.4-11.0)
[2022-04-14 13:29] LABS: Vitamin D,25 Hydroxy 27.6 ng/mL
[2022-04-14 13:46] LABS: ALB/GLOB Ratio 1.2 RATIO (0.9-2.4); AST(SGOT) 24 U/L (15-37); Alanine Aminotransfer ALT/SGPT 34 U/L (16-61); Albumin, Serum 3.8 g/dL (3.2-5.0); Alkaline Phosphatase 104 U/L (45-117); Anion Gap 7 (5-15); BUN 21 mg/dL (7-18); BUN/Creat Ratio 24.5 RATIO (10-20); Calcium,Total 8.8 mg/dL (8.5-10.1); Chloride 106 mmol/L (98-107); Creatinine, Serum 0.86 mg/dL (0.70-1.30); EST Glomerular Filtration Rate 94 mL/min (>60); Est Glom Filt Rate - Afr Amer 113 mL/min (>60); Globulin 3.3 g/dL (2.2-4.2); Glucose 111 mg/dL (74-106); Potassium 3.8 mmol/L (3.5-5.1); Protein, Total 7.1 g/dL (6.4-8.2); Sodium Level 139 mmol/L (136-145); Thyroid Stim Hormone (TSH) 1.26 uIU/mL (0.358-3.74)
== END | disposition home or self-care (01) ==
LOC: POLAB3 10:23
PROVIDERS: PCP Family Medicine Geriatric Medicine; Visit Provider Family Medicine Geriatric Medicine
DX: E55.9 Vitamin D deficiency, unspecified (principal); R53.83 Other fatigue
CPT/HCPCS: 36415; 80053; 82306; 84443; 85025

== ENCOUNTER → 2022-06-13 | Outpatient (CLI) | payer MEDICARE, OTHER, SELFPAY ==
--- NOTE | 2022-06-13 12:56 | ECHOD_ITS ---
Reason For Study: MVP Procedure This was a 2D Doppler, Color Flow transthoracic echocardiogram. Exam performed in department. Left Ventricle Normal LV size. Mid cavitary false tendon noted. Mild concentric left ventricular hypertrophy. Left ventricular systolic function is normal. The estimated ejection fraction is 60 %. Stage 1 diastolic dysfunction. No regional wall motion abnormalities noted. Right Ventricle Normal RV size. Normal systolic function. Atria Normal left atrium. Normal right atrium. Mitral Valve Mild diffuse mitral valve thickening. Tricuspid Valve Normal tricuspid valve. Mild tricuspid valve insufficiency. Pulmonary artery systolic pressure is 22 mmHg. Aortic Valve Trisinus/trileaflet aortic valve. Great Vessels Normal aortic root. The pulmonary artery is normal size. Normal inferior vena cava. Pericardium/Pleural No pericardial effusion. MMode/2D Measurements & Calculations LVIDd: 4.2 cm IVSd: 1.2 cm Ao root diam: 3.2 cm LVIDs: 2.7 cm LVPWd: 1.3 cm FS: 35.0 % LAV(MOD-sp4): 46.9 ml LVAd ap4: 24.5 cm2 LVAd ap2: 26.8 cm2 LVLd ap4: 7.2 cm LVLd ap2: 7.5 cm EDV(MOD-sp4): 68.9 ml EDV(MOD-sp2): 80.5 ml EDV(sp4-el): 71.2 ml EDV(sp2-el): 80.9 ml LVAs ap4: 15.0 cm2 LVAs ap2: 16.8 cm2 LVLs ap4: 6.1 cm LVLs ap2: 7.0 cm ESV(MOD-sp4): 30.4 ml ESV(MOD-sp2): 34.7 ml ESV(sp4-el): 31.0 ml ESV(sp2-el): 34.2 ml EF(MOD-sp4): 55.8 % EF(MOD-sp2): 56.9 % EF(sp4-el): 56.5 % SV(MOD-sp4): 38.5 ml SV(MOD-sp2): 45.8 ml SV(sp4-el): 40.2 ml LA dimension(2D): 2.9 cm LA A4 area: 17.3 cm2 RA A4 area: 12.1 cm2 Time Measurements MV dec time: 0.27 sec Doppler Measurements & Calculations MV E max virgilio: 40.5 cm/sec Lat Peak E' Virgilio: 7.3 cm/sec Med Peak E' Virgilio: 6.8 cm/sec MV A max virgilio: 70.4 cm/sec E/E' lat: 5.6 E/E' med: 6.0 MV E/A: 0.57 MV V2 max: 73.1 cm/sec MV dec slope: 162.7 cm/sec2 Ao V2 max: 98.3 cm/sec MV max P.1 mmHg Ao max P.9 mmHg MV V2 mean: 41.1 cm/sec Ao V2 mean: 47.5 cm/sec MV mean P.77 mmHg Ao mean P.3 mmHg MV V2 VTI: 19.6 cm Ao V2 VTI: 17.4 cm AV (velocity ratio): 0.81 LV V1 max: 68.5 cm/sec MR max virgilio: 587.4 cm/sec PA V2 max: 80.7 cm/sec LV V1 max P.9 mmHg MR max P.0 mmHg LV V1 mean P.0 mmHg LV V1 mean: 47.4 cm/sec LV V1 VTI: 14.2 cm TR max virgilio: 215.3 cm/sec TR max P.5 mmHg ECHO/Echo Complete Interpretation Summary Normal LV size. Left ventricular systolic function is normal. Mild concentric left ventricular hypertrophy. The estimated ejection fraction is 60 %. Stage 1 diastolic dysfunction. Mild diffuse mitral valve thickening. Ordering Physician: Kala Loera Referring Physician: Ish Black Chi Performed By: Sarina Abdul RCS
== END | disposition home or self-care (01) ==
LOC: CVS 12:54
PROVIDERS: PCP Family Medicine Geriatric Medicine; Visit Provider Nurse Practitioner Gerontology
DX: I34.1 Nonrheumatic mitral (valve) prolapse (principal)
CPT/HCPCS: 93306

== ENCOUNTER → 2022-07-14 | Outpatient (CLI) | payer MEDICARE, OTHER, SELFPAY | END | disposition home or self-care (01) | LOC: PSN 09:25 | PROVIDERS: PCP Family Medicine Geriatric Medicine; Visit Provider Family Medicine Geriatric Medicine | DX: R68.83 Chills (without fever) (principal) | CPT/HCPCS: 87635; 87804; 87807; C9803; U0003; U0005 ==

== ENCOUNTER → 2022-07-19 | Outpatient (CLI) | payer MEDICARE, OTHER, SELFPAY | END | disposition home or self-care (01) | LOC: PSN 13:48 | PROVIDERS: PCP Family Medicine Geriatric Medicine; Visit Provider Family Medicine Geriatric Medicine | DX: R68.83 Chills (without fever) (principal) | CPT/HCPCS: 87635; 87804; 87807; U0003; U0005 ==

== ENCOUNTER → 2022-07-29 | Outpatient (CLI) | payer MEDICARE, OTHER, SELFPAY ==
--- NOTE | 2022-07-29 10:20 | RAD_ITS ---
EXAM: XR CERVICAL SPINE, 2 OR 3 VIEWS CLINICAL INDICATION: NECK PAIN TECHNIQUE: Frontal and lateral views of the cervical spine. This report was created using [employer] report generation technology. COMPARISON: None. FINDINGS: VERTEBRAE: Loss of lordosis probably due to muscle spasm and/or position. No significant facet arthropathy. No acute or healing fracture or spondylolisthesis. 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 SOFT TISSUES: Soft tissues are normal. No prevertebral soft tissue widening. LUNG APICES: Clear. 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 Electronically Signed: Neo Moe MD at 2:58 EDT ,
[2022-07-29 13:22] LABS: Absolute Lymphocyte Count 0.72 X10^3/uL (0.83-4.51); Absolute Neutrophil Count 5.5 X10^3/uL (2.0-7.7); Basophil# 0.04 X10^3/uL; Basophil% 0.6 % (0-1); Eosinophil# 0.24 X10^3/uL; Eosinophils% 3.3 % (0-5); Hematocrit 40.4 % (40-54); Hemoglobin 13.3 g/dL (13.0-16.5); Lymphocyte # 0.72 X10^3/ul (0.83-4.51); Mean Corp Hgb Conc 32.9 g/dL (32-36); Mean Corpuscular Hgb 30.4 pg (27.0-32.0); Mean Corpuscular Volume 92.4 fL (80-94); Mean Platelet Vol. 11.9 fl (6.2-12.0); Monocyte% 9.7 % (0-10); NRBC Flagged by Analyzer 0 % (0-5); Neutrophil # 5.45 X10^3/uL (2.7-7.7); Neutrophil % 75.4 % (47-70); Platelet Count 175 K/mm3 (150-450); RBC Distribution Width CV 13.4 % (11.6-14.6); RBC Distribution Width SD 46.2 fl (35.1-43.9); Red Blood Count 4.37 M/mm3 (4.6-6.2); White Blood Count 7.2 K/mm3 (4.4-11.0)
[2022-07-29 13:57] LABS: ALB/GLOB Ratio 0.9 RATIO (0.9-2.4); AST(SGOT) 130 U/L (15-37); Alanine Aminotransfer ALT/SGPT 203 U/L (16-61); Albumin, Serum 3.5 g/dL (3.2-5.0); Alkaline Phosphatase 291 U/L (45-117); Anion Gap 8 (5-15); BUN 25 mg/dL (7-18); Calcium,Total 8.9 mg/dL (8.5-10.1); Chloride 105 mmol/L (98-107); Creatinine, Serum 0.89 mg/dL (0.70-1.30); EST Glomerular Filtration Rate 89 mL/min (>60); Est Glom Filt Rate - Afr Amer 108 mL/min (>60); Glucose 104 mg/dL (74-106); Potassium 3.5 mmol/L (3.5-5.1); Protein, Total 7.5 g/dL (6.4-8.2); Sodium Level 138 mmol/L (136-145); Thyroid Stim Hormone (TSH) 2.45 uIU/mL (0.358-3.74)
== END | disposition home or self-care (01) ==
PROVIDERS: PCP Family Medicine Geriatric Medicine; Referring Provider Family Medicine Geriatric Medicine; Visit Provider Family Medicine Geriatric Medicine
DX: R53.83 Other fatigue (principal); M54.2 Cervicalgia
CPT/HCPCS: 36415; 72040; 80053; 84443; 85025

== ENCOUNTER 2022-08-02 12:24 | Outpatient (CLI) | payer MEDICARE, OTHER, SELFPAY ==
[2022-08-02 13:50] LABS: ALB/GLOB Ratio 0.9 RATIO (0.9-2.4); AST(SGOT) 40 U/L (15-37); Alanine Aminotransfer ALT/SGPT 133 U/L (16-61); Albumin, Serum 3.4 g/dL (3.2-5.0); Alkaline Phosphatase 211 U/L (45-117); Anion Gap 2 (5-15); BUN 20 mg/dL (7-18); BUN/Creat Ratio 24.8 RATIO (10-20); Calcium,Total 8.7 mg/dL (8.5-10.1); Chloride 106 mmol/L (98-107); Creatinine, Serum 0.81 mg/dL (0.70-1.30); EST Glomerular Filtration Rate 100 mL/min (>60); Est Glom Filt Rate - Afr Amer 121 mL/min (>60); Globulin 3.9 g/dL (2.2-4.2); Glucose 104 mg/dL (74-106); Potassium 3.6 mmol/L (3.5-5.1); Protein, Total 7.3 g/dL (6.4-8.2); Sodium Level 136 mmol/L (136-145)
[2022-08-04 08:10] LABS: HEPATITIS B SURFACE AG Negative (Negative); Hep C Antibodies Non Reactive (Non Reactive); Hepatitis A IgM Antibody Negative (Negative); Hepatitis B Core AB IgM Negative (Negative)
== END 2022-08-02 23:59 | disposition home or self-care (01) ==
LOC: POLAB3 12:25
PROVIDERS: PCP Family Medicine Geriatric Medicine; Visit Provider Family Medicine Geriatric Medicine
DX: R68.83 Chills (without fever) (principal); J98.8 Other specified respiratory disorders; R74.8 Abnormal levels of other serum enzymes
CPT/HCPCS: 36415; 80053; 80074; 87070; 87205; 87635; 87804; 87807; U0003; U0005

== ENCOUNTER → 2022-08-02 | Outpatient (CLI) | payer MEDICARE, OTHER, SELFPAY | END | disposition home or self-care (01) | LOC: PSN 09:18 | PROVIDERS: PCP Family Medicine Geriatric Medicine; Referring Provider Family Medicine Geriatric Medicine; Visit Provider Family Medicine Geriatric Medicine | DX: R68.83 Chills (without fever) (principal) | CPT/HCPCS: 87635; 87804; 87807; U0003; U0005 ==

== ENCOUNTER → 2022-08-24 | Outpatient (CLI) | payer MEDICARE, OTHER, SELFPAY ==
--- NOTE | 2022-08-24 08:50 | US_ITS ---
STUDY: ABDOMINAL ULTRASOUND - RIGHT UPPER QUADRANT REASON FOR VISIT: Male, 72 years old RUQ PAIN . Abnormal labs. TECHNIQUE: Ultrasound evaluation of the right upper quadrant was performed with real-time and static kohler-scale imaging. TECHNICAL QUALITY: Adequate. COMPARISON: Comparison is made with prior CT scan dated October 19, 2013. FINDINGS: Liver: The liver measures 13.2 cm. There is normal echogenicity of the liver. The bile ducts are within normal limits. There is hepatic color flow. The direction of portal flow is hepatopetal. There is no demonstrated mass lesion. Gallbladder: Normal distended gallbladder. The gallbladder wall measures 1.5 mm. There is a negative sonographic Garay''s sign. There is no pericholecystic fluid. There are no gallstones. Common Bile Duct (C.B.D.): The common bile duct measures 2.4 mm. Pancreas: Normal size of the head, body and tail of the pancreas. There is normal echogenicity of the pancreas. There is no demonstrated pancreatic mass or cyst. Right Kidney: Normal size of the right kidney. The right kidney measures 10.6 cm x 4.6 x 4.5 cm. Normal renal cortex. The right cortex measures 1.5 cm. There is no demonstrated renal mass or cyst. There is no right hydronephrosis. US/Abdomen Limited IMPRESSION: Normal right upper quadrant ultrasound examination. Electronically Signed: Alan Dey MD at 14:33 EDT ,
== END | disposition home or self-care (01) ==
LOC: US 08:48
PROVIDERS: PCP Family Medicine Geriatric Medicine; Referring Provider Family Medicine Geriatric Medicine; Visit Provider Family Medicine Geriatric Medicine
DX: R74.8 Abnormal levels of other serum enzymes (principal)
CPT/HCPCS: 76705

== ENCOUNTER → 2022-08-25 | Outpatient (CLI) | payer MEDICARE, OTHER, SELFPAY | END | disposition home or self-care (01) | LOC: LABSPEC 15:13 | PROVIDERS: PCP Family Medicine Geriatric Medicine; Referring Provider Otolaryngology; Visit Provider Otolaryngology | DX: J02.9 Acute pharyngitis, unspecified (principal) | CPT/HCPCS: 87070 ==

== ENCOUNTER → 2022-10-18 | Outpatient (CLI) | payer MEDICARE, OTHER, SELFPAY ==
[2022-10-18 11:26] LABS: Absolute Lymphocyte Count 1.07 X10^3/uL (0.83-4.51); Absolute Neutrophil Count 2.8 X10^3/uL (2.0-7.7); Basophil# 0.03 X10^3/uL; Basophil% 0.7 % (0-1); Eosinophil# 0.11 X10^3/uL; Eosinophils% 2.4 % (0-5); Hematocrit 42.4 % (40-54); Lymphocyte # 1.07 X10^3/ul (0.83-4.51); Lymphocyte % 23.6 % (19-41); Mean Corpuscular Hgb 30.8 pg (27.0-32.0); Mean Corpuscular Volume 93.4 fL (80-94); Mean Platelet Vol. 10.8 fl (6.2-12.0); Monocyte# 0.47 X10^3/uL; Monocyte% 10.4 % (0-10); NRBC Flagged by Analyzer 0 % (0-5); Neutrophil # 2.83 X10^3/uL (2.7-7.7); Neutrophil % 62.2 % (47-70); Platelet Count 166 K/mm3 (150-450); RBC Distribution Width CV 13.4 % (11.6-14.6); RBC Distribution Width SD 45.7 fl (35.1-43.9); Red Blood Count 4.54 M/mm3 (4.6-6.2); White Blood Count 4.5 K/mm3 (4.4-11.0)
[2022-10-18 11:58] LABS: Vitamin D,25 Hydroxy 35.4 ng/mL
[2022-10-18 12:06] LABS: AST(SGOT) 18 U/L (15-37); Alanine Aminotransfer ALT/SGPT 24 U/L (16-61); Albumin, Serum 3.7 g/dL (3.2-5.0); Alkaline Phosphatase 109 U/L (45-117); Anion Gap 5 (5-15); BUN 21 mg/dL (7-18); BUN/Creat Ratio 22.6 RATIO (10-20); Calcium,Total 8.7 mg/dL (8.5-10.1); Chloride 108 mmol/L (98-107); Creatinine, Serum 0.93 mg/dL (0.70-1.30); EST Glomerular Filtration Rate 85 mL/min (>60); Est Glom Filt Rate - Afr Amer 103 mL/min (>60); Globulin 3.8 g/dL (2.2-4.2); Glucose 79 mg/dL (74-106); PSA,Total - Annual Screen 0.08 ng/mL (0.00-4.00); Protein, Total 7.5 g/dL (6.4-8.2); Sodium Level 137 mmol/L (136-145); Thyroid Stim Hormone (TSH) 1.86 uIU/mL (0.358-3.74)
== END | disposition home or self-care (01) ==
PROVIDERS: PCP Family Medicine Geriatric Medicine; Referring Provider Family Medicine Geriatric Medicine; Visit Provider Family Medicine Geriatric Medicine
DX: R53.83 Other fatigue (principal); E55.9 Vitamin D deficiency, unspecified; Z12.5 Encounter for screening for malignant neoplasm of prostate
CPT/HCPCS: 36415; 80053; 82306; 84153; 84443; 85025; G0103

== ENCOUNTER → 2023-02-15 | Outpatient (CLI) | payer MEDICARE, OTHER, SELFPAY | END | disposition home or self-care (01) | PROVIDERS: PCP Family Medicine Geriatric Medicine; Referring Provider Family Medicine Geriatric Medicine; Visit Provider Family Medicine Geriatric Medicine | DX: U07.1 COVID-19 (principal); R68.83 Chills (without fever) | CPT/HCPCS: 87635; 87804; 87807; C9803 ==

== ENCOUNTER → 2023-02-20 | Outpatient (CLI) | payer MEDICARE, OTHER, SELFPAY | END | disposition home or self-care (01) | PROVIDERS: PCP Family Medicine Geriatric Medicine; Referring Provider Family Medicine Geriatric Medicine; Visit Provider Family Medicine Geriatric Medicine | DX: U07.1 COVID-19 (principal); R68.83 Chills (without fever) | CPT/HCPCS: 87635; C9803 ==

== ENCOUNTER → 2023-04-13 | Outpatient (CLI) | payer MEDICARE, OTHER, SELFPAY ==
[2023-04-13 17:02] LABS: Absolute Lymphocyte Count 0.95 X10^3/uL (0.83-4.51); Absolute Neutrophil Count 3.4 X10^3/uL (2.0-7.7); Basophil# 0.04 X10^3/uL; Basophil% 0.8 % (0-1); Eosinophil# 0.05 X10^3/uL; Hematocrit 40.9 % (40-54); Hemoglobin 13.3 g/dL (13.0-16.5); Lymphocyte # 0.95 X10^3/ul (0.83-4.51); Lymphocyte % 19.9 % (19-41); Mean Corp Hgb Conc 32.5 g/dL (32-36); Mean Corpuscular Hgb 30.6 pg (27.0-32.0); Mean Corpuscular Volume 94.2 fL (80-94); Monocyte# 0.35 X10^3/uL; Monocyte% 7.3 % (0-10); NRBC Flagged by Analyzer 0 % (0-5); Neutrophil # 3.36 X10^3/uL (2.7-7.7); Neutrophil % 70.4 % (47-70); Platelet Count 191 K/mm3 (150-450); RBC Distribution Width CV 13.9 % (11.6-14.6); RBC Distribution Width SD 47.9 fl (35.1-43.9); Red Blood Count 4.34 M/mm3 (4.6-6.2); White Blood Count 4.8 K/mm3 (4.4-11.0)
[2023-04-13 17:48] LABS: Vitamin D,25 Hydroxy 26.4 ng/mL
[2023-04-13 17:57] LABS: ALB/GLOB Ratio 1.1 RATIO (0.9-2.4); AST(SGOT) 18 U/L (15-37); Alanine Aminotransfer ALT/SGPT 25 U/L (16-61); Albumin, Serum 3.6 g/dL (3.2-5.0); Alkaline Phosphatase 103 U/L (45-117); Anion Gap 8 (5-15); BUN 21 mg/dL (7-18); BUN/Creat Ratio 22.9 RATIO (10-20); Calcium,Total 8.5 mg/dL (8.5-10.1); Chloride 106 mmol/L (98-107); Creatinine, Serum 0.92 mg/dL (0.70-1.30); EST Glomerular Filtration Rate 86 mL/min (>60); Est Glom Filt Rate - Afr Amer 105 mL/min (>60); Globulin 3.3 g/dL (2.2-4.2); Glucose 123 mg/dL (74-106); Potassium 3.5 mmol/L (3.5-5.1); Protein, Total 6.9 g/dL (6.4-8.2); Sodium Level 139 mmol/L (136-145); Thyroid Stim Hormone (TSH) 1.27 uIU/mL (0.358-3.74)
== END | disposition home or self-care (01) ==
LOC: LAB 15:09
PROVIDERS: PCP Family Medicine Geriatric Medicine; Referring Provider Family Medicine Geriatric Medicine; Visit Provider Family Medicine Geriatric Medicine
DX: R53.83 Other fatigue (principal); E55.9 Vitamin D deficiency, unspecified
CPT/HCPCS: 36415; 80053; 82306; 84443; 85025

== ENCOUNTER → 2023-11-02 | Outpatient (CLI) | payer MEDICARE, OTHER, SELFPAY ==
[2023-11-02 15:58] LABS: Absolute Lymphocyte Count 0.83 X10^3/uL (0.83-4.51); Absolute Neutrophil Count 2.4 X10^3/uL (2.0-7.7); Basophil# 0.03 X10^3/uL; Basophil% 0.8 % (0-1); Eosinophil# 0.09 X10^3/uL; Eosinophils% 2.4 % (0-5); Hematocrit 40.2 % (40-54); Hemoglobin 13.4 g/dL (13.0-16.5); Lymphocyte # 0.83 X10^3/ul (0.83-4.51); Lymphocyte % 21.9 % (19-41); Mean Corp Hgb Conc 33.3 g/dL (32-36); Mean Corpuscular Hgb 30.6 pg (27.0-32.0); Mean Corpuscular Volume 91.8 fL (80-94); Mean Platelet Vol. 11.3 fl (6.2-12.0); Monocyte# 0.41 X10^3/uL; Monocyte% 10.8 % (0-10); NRBC Flagged by Analyzer 0 % (0-5); Neutrophil # 2.41 X10^3/uL (2.7-7.7); Neutrophil % 63.6 % (47-70); Platelet Count 164 K/mm3 (150-450); RBC Distribution Width CV 13.2 % (11.6-14.6); RBC Distribution Width SD 44.7 fl (35.1-43.9); Red Blood Count 4.38 M/mm3 (4.6-6.2); White Blood Count 3.8 K/mm3 (4.4-11.0)
[2023-11-02 16:21] LABS: ALB/GLOB Ratio 1.1 RATIO (0.9-2.4); AST(SGOT) 20 U/L (15-37); Alanine Aminotransfer ALT/SGPT 21 U/L (16-61); Albumin, Serum 3.7 g/dL (3.2-5.0); Alkaline Phosphatase 118 U/L (45-117); Anion Gap 5 (5-15); BUN 17 mg/dL (7-18); BUN/Creat Ratio 20.1 RATIO (10-20); Calcium,Total 8.7 mg/dL (8.5-10.1); Chloride 107 mmol/L (98-107); Creatinine, Serum 0.84 mg/dL (0.70-1.30); EST Glomerular Filtration Rate 95 mL/min (>60); Est Glom Filt Rate - Afr Amer 115 mL/min (>60); Globulin 3.4 g/dL (2.2-4.2); Glucose 86 mg/dL (74-106); PSA,Total- Diagnostic 0.08 ng/mL (0.0-4.0); Protein, Total 7.1 g/dL (6.4-8.2); Sodium Level 136 mmol/L (136-145); Thyroid Stim Hormone (TSH) 1.65 uIU/mL (0.358-3.74)
== END | disposition home or self-care (01) ==
LOC: POLAB3 15:14
PROVIDERS: PCP Family Medicine Geriatric Medicine; Visit Provider Family Medicine Geriatric Medicine
DX: Z85.46 Personal history of malignant neoplasm of prostate (principal); R53.83 Other fatigue; E55.9 Vitamin D deficiency, unspecified
CPT/HCPCS: 36415; 80053; 82306; 84153; 84443; 85025

== ENCOUNTER → 2024-04-25 | Outpatient (CLI) | payer MEDICARE, OTHER, SELFPAY ==
[2024-04-25 13:18] LABS: Absolute Lymphocyte Count 1.12 X10^3/uL (0.83-4.51); Absolute Neutrophil Count 3.1 X10^3/uL (2.0-7.7); Basophil# 0.03 X10^3/uL; Basophil% 0.6 % (0-1); Eosinophil# 0.08 X10^3/uL; Eosinophils% 1.6 % (0-5); Hematocrit 42.2 % (40-54); Hemoglobin 13.8 g/dL (13.0-16.5); Lymphocyte # 1.12 X10^3/ul (0.83-4.51); Mean Corp Hgb Conc 32.7 g/dL (32-36); Mean Corpuscular Volume 91.7 fL (80-94); Mean Platelet Vol. 10.6 fl (6.2-12.0); Monocyte# 0.51 X10^3/uL; Monocyte% 10.5 % (0-10); NRBC Flagged by Analyzer 0 % (0-5); Neutrophil # 3.12 X10^3/uL (2.7-7.7); Neutrophil % 63.9 % (47-70); Platelet Count 179 K/mm3 (150-450); RBC Distribution Width CV 13.4 % (11.6-14.6); RBC Distribution Width SD 44.9 fl (35.1-43.9); White Blood Count 4.9 K/mm3 (4.4-11.0)
[2024-04-25 14:58] LABS: Vitamin D,25 Hydroxy 17.9 ng/mL
[2024-04-25 21:52] LABS: ALB/GLOB Ratio 1.1 RATIO (0.9-2.4); AST(SGOT) 26 U/L (15-37); Alanine Aminotransfer ALT/SGPT 30 U/L (16-61); Albumin, Serum 3.8 g/dL (3.2-5.0); Alkaline Phosphatase 123 U/L (45-117); Anion Gap 2 (5-15); BUN 21 mg/dL (7-18); BUN/Creat Ratio 22.2 RATIO (10-20); Calcium,Total 9.1 mg/dL (8.5-10.1); Chloride 107 mmol/L (98-107); Creatinine, Serum 0.95 mg/dL (0.70-1.30); EST Glomerular Filtration Rate 83 mL/min (>60); Est Glom Filt Rate - Afr Amer 100 mL/min (>60); Globulin 3.5 g/dL (2.2-4.2); Glucose 111 mg/dL (74-106); Potassium 3.9 mmol/L (3.5-5.1); Protein, Total 7.3 g/dL (6.4-8.2); Sodium Level 138 mmol/L (136-145)
== END | disposition home or self-care (01) ==
LOC: POLAB3 13:04
PROVIDERS: PCP Family Medicine Geriatric Medicine; Visit Provider Family Medicine Geriatric Medicine
DX: R53.83 Other fatigue (principal); E55.9 Vitamin D deficiency, unspecified
CPT/HCPCS: 36415; 80053; 82306; 84443; 85025

== ENCOUNTER → 2024-08-07 | Outpatient (CLI) | payer MEDICARE, OTHER, SELFPAY ==
--- NOTE | 2024-08-07 15:36 | RAD_ITS ---
PROCEDURE: WRIST MIN 3 VIEWS 08/07/2024 REASON FOR EXAM: PAIN TECHNIQUE: 3 views of the right wrist COMPARISON: None FINDINGS: Bones: No visible fracture. No suspicious bone lesion. Joints: Normal alignment. Soft tissues: Soft tissues are unremarkable. Other: RAD/Wrist min 3 Views IMPRESSION: NO ACUTE FRACTURE OR DISLOCATION. If acute hand or wrist trauma is suspected an d initial radiographs are negative or equivocal repeat radiographs in 10-14 days MRI without IV contrast or CT without IV contr ast is usually appropriate as the next imaging study. (ACR Appropriateness Criteria: Acute Hand and Wrist Trauma 2018) Reading Location: [facility]
--- NOTE | 2024-08-07 15:36 | RAD_ITS ---
PROCEDURE: FINGER(S) MIN 2 VIEWS 08/07/2024 REASON FOR EXAM: PAIN TECHNIQUE: 3 view(s) of the right 1st digit COMPARISON: None FINDINGS: Bones: No acute fracture Joints: Normal alignment. Soft tissues: Soft tissues are unremarkable. Other: RAD/Finger(s) Min 2 Views IMPRESSION: NO ACUTE FRACTURE OR DISLOCATION. Reading Location: [facility]
== END | disposition home or self-care (01) ==
LOC: RAD 15:27
PROVIDERS: PCP Family Medicine Geriatric Medicine; Referring Provider Family Medicine Geriatric Medicine; Visit Provider Family Medicine Geriatric Medicine
DX: M79.644 Pain in right finger(s) (principal); M25.531 Pain in right wrist
CPT/HCPCS: 73110; 73140

== ENCOUNTER → 2024-11-04 | Outpatient (CLI) | payer MEDICARE, OTHER, SELFPAY ==
[2024-11-04 13:47] LABS: Hematocrit 39.4 % (40-54); Hemoglobin 13.6 g/dL (13.0-16.5); Immature Granulocytes Count 0.040 X10^3/uL (0.0-0.0); Mean Corp Hgb Conc 34.5 g/dL (32-36); Mean Corpuscular Volume 92.3 fL (80-94); Mean Platelet Vol. 10.8 fl (6.2-12.0); NRBC Flagged by Analyzer 0 % (0-5); Platelet Count 181 K/mm3 (150-450); RBC Distribution Width CV 13.6 % (11.6-14.6); RBC Distribution Width SD 45.7 fl (35.1-43.9); Red Blood Count 4.27 M/mm3 (4.6-6.2); White Blood Count 4.9 K/mm3 (4.4-11.0)
[2024-11-04 14:45] LABS: AST(SGOT) 26 U/L (<=37); Alanine Aminotransfer ALT/SGPT 18 U/L (<=46); Albumin, Serum 4.2 g/dL (3.4-4.8); Alkaline Phosphatase 119 U/L (40-129); Anion Gap 11 (5-15); BUN 22 mg/dL (4-19); BUN/Creat Ratio 26.6 RATIO (10-20); Calcium,Total 9.0 mg/dL (7.6-11.0); Carbon Dioxide 23.9 mmol/L (21.0-32.0); Chloride 104 mmol/L (98-108); Globulin 2.9 g/dL (2.2-4.2); Glucose 115 mg/dL (70-99); PSA,Total - Annual Screen 0.12 ng/mL (0.02-4.00); Potassium 4.2 mmol/L (3.3-5.1); Vitamin D,25 Hydroxy 22.5 ng/mL (30-100)
[2024-11-04 21:21] LABS: Xtra Tube Kwok EXTRA TUBE
--- OUTSIDE RECORDS SUMMARY | 2024-11-04 22:16 | XMS RPT_ITS | CCD ---
Author Organization [facility] Care Team Providers Care Surgical Orderly Name Role Phone Eun Cherry Unavailable Eun Cherry Unavailable Wayne, Dr. Ish Jaramillo Primary Care Provider [phone] Wayne, Dr. Ish Jaramillo Referring Provider Evaristo SENIOR CONTRACTS ADMINISTRATOR, SENIOR CONTRACTS ADMINISTRATOR-C Kala Attending Provider Dr. Santos Sutton Attending Provider [phone] Wayne, Dr. Ish Jaramillo Primary Care Provider [phone] Wayne, Dr. Ish Jaramillo Referring Provider Evaristo AUGUSTIN, CHARLI-C Kala Attending Provider Dr. Santos Sutton Attending Provider Wayne, Dr. Ish Jaramillo Primary Care Provider Wayne, Dr. Ish Jaramillo Referring Provider Dr. Santos Sutton Attending Provider Dr. Ish Black MD, Chi Primary Care Provider [phone] Dr. Ish Black MD, Chi Attending Provider Dr. Ish Black MD, Chi Referring Provider [phone] Wayne, Ish Chi Attending Unavailable Wayne, Ish Chi Primary Care Unavailable Wayne, Ish Chi Primary Care Unavailable Wayne, Ish Chi Attending Unavailable Wayne, Ish Chi Attending Unavailable Wayne, Ish Chi Referring Unavailable Wayne, Ish Chi Primary Care Unavailable [facility] Randall AUGUSTIN Attending Unavailable Wayne, Ish Chi Primary Care Unavailable Wayne, Ish Chi Referring Unavailable Allergies Allergy Classification Reported Allergen(s) Allergy Type Date of Onset Reaction(s) Facility (2 sources) sulfamethoxazole / trimethoprim drug allergy 5 [place] [facility] Work Phone: (2 sources) sulfamethoxazole / trimethoprim drug allergy 4 unknown [facility] Work Phone: (10 sources) Sulfamethoxazole Drug Allergy 1 PT UNSURE OF REACTION [facility] (10 sources) Trimethoprim Drug Allergy 1 PT UNSURE OF REACTION [facility] (3 sources) Azithromycin Drug Allergy 3 Elevated liver enzymes [facility] (1 source) Azithromycin Drug Allergy 4 [facility] Repository (1 source) Sulfamethoxazole Drug Allergy 4 [facility] Repository (1 source) Trimethoprim Drug Allergy 4 [facility] Repository Medications Current Medications Medication Drug Class(es) Dates Sig (Normalized) Sig (Original) aspirin 81 mg chewable tablet (20 sources) Nonsteroidal Anti-inflammatory Drug Start: 09-27-2022 take 1 tablet by mouth once daily in the evening Aspirin 81 mg tablet,chewable Active 81 mg PO .COMPLEX September 27, 2022 10:32am 81 mg orally take 2 tabs QAM and 1 tab qpm; Start: 08-04-2021 End: 09-27-2022 take 3 tablets by mouth once daily Aspirin 81 mg tablet,chewable Discontinued 243 mg PO DAILY August 04, 2021 10:11am September 27, 2022 10:33am Start: 08-04-2021 End: 09-27-2022 take 243 mg by mouth once daily Aspirin Discontinued 243 MG PO DAILY August 04, 2021 10:11am September 27, 2022 10:33am Start: 06-13-2016 take 1 tablet by souleymane th once daily ASPIRIN 325 MG TBEC one tab by mouth daily ASPIRIN [id number] Katie Stoner NP Start: 11-04-2015 End: 08-04-2021 take 2 tablets by mouth twice daily Aspirin 81 MG tablet,chewable Discontinued 162 mg PO TWICE A DAY November 04, 2015 12:00am August 04, 2021 10:11am Start: 11-04-2015 End: 08-04-2021 take 162 mg by mouth twice daily Aspirin Discontinued 162 MG PO TWICE A DAY November 04, 2015 12:00am August 04, 2021 10:11am Start: 06-23-2014 End: 06-24-2014 take 1 tablet by mouth once daily Aspirin 81 MG Tab.Chew Discontinued 81 mg PO DAILY@0800 June 23, 2014 1:00am June 24, 2014 3:55pm Start: 04-10-2014 End: 12-01-2015 take 1 tablet by mouth once daily ASPIRIN 81 MG TABS One tablet by mouth daily ASPIRIN [id number] Santos Sutton MD dicyclomine hydrochloride 10 mg oral capsule (10 sources) Anticholinergic Start: 08-26-2019 Dicyclomine 10 mg capsule Active 10 mg PO NEEDED as needed for Diarrhea/Loose Stools August 26, 2019 12:00am LORazepam 0.5 mg oral tablet (18 sources) Benzodiazepine Start: 12-01-2015 take 1 tablet by mouth once daily as needed for anxiety Lorazepam 0.5 MG tablet Active 0.5 mg PO DAILY NEEDED as needed for Anxiety August 24, 2016 12:00am Start: 04-08-2014 End: 11-04-2015 take 1 tablet by mouth once daily as needed LORAZEPAM 0.5 MG TABS One tablet by mouth daily as needed LORAZEPAM [id number] Santos Sutton MD Multivitamin With Folic Acid (9 sources) Start: 11-25-2013 take 1 tablet by mouth once daily Multivitamin With Folic Acid Active 1 TABLET PO DAILY November 25, 2013 12:00am Start: 11-25-2013 take 1 tablet by souleymane once daily Multivitamin With Folic Acid Active 1 TABLET PO DAILY November 24, 2013 11:00pm Multivitamin With Folic Acid 1 TABLET tablet (1 source) Start: 11-25-2013 take 1 tablet by mouth once daily Multivitamin With Folic Acid 1 TABLET tablet Active 1 {tbl} PO DAILY November 25, 2013 12:00am sertraline 50 mg oral tablet (20 sources) Serotonin Reuptake Inhibitor Start: 09-28-2023 take 1 tablet by mouth once daily Sertraline 50 mg tablet Active 50 mg PO daily September 28, 2023 12:00am Start: 09-27-2022 End: 09-28-2023 Sertraline 100 mg tablet Discontinued 50 mg PO TWICE A DAY September 27, 2022 12:00am September 28, 2023 10:47am Start: 09-27-2022 take 50 mg by mouth twice aiden y Sertraline Active 50 MG PO TWICE A DAY September 27, 2022 12:00am Start: 06-01-2022 End: 09-27-2022 take 1 tablet by mouth twice daily Sertraline 50 mg tablet Discontinued 50 mg PO TWICE A DAY June 01, 2022 2:38pm September 27, 2022 10:33am Start: 11-04-2015 End: 06-01-2022 take 1 tablet by mouth once daily Sertraline 50 MG tablet Discontinued 50 mg PO DAILY November 04, 2015 12:00am June 01, 2022 2:39pm Completed/Discontinued Medications Medication Drug Class(es) Dates Sig (Normalized) Sig (Original) amiodarone hydrochloride 200 mg oral tablet (4 sources) Antiarrhythmic Start: 06-30-2014 End: 09-24-2014 take 1 tablet by mouth once daily AMIODARONE HCL 200 MG TABS One tablet by mouth daily AMIODARONE HCL [id number] Santos Sutton MD 12 hr amoxicillin 1000 mg / clavulanate 62.5 mg extended release oral tablet (10 sources) Penicillin-class Antibacterial Start: 06-23-2014 End: 06-24-2014 Amoxicillin-Pot Clavulanate 1 EACH Tab.Er.12h Discontinued 2 {tbl} PO TWICE A DAY June 23, 2014 1:00am June 24, 2014 3:55pm Start: 06-23-2014 End: 06-24-2014 take 2 tablets by mouth twice daily Amoxicillin-Pot Clavulanate Discontinued 2 TABLET PO TWICE A DAY June 23, 2014 1:00am June 24, 2014 3:55pm apixaban 5 mg oral tablet (10 sources) Factor Xa Inhibitor Start: 07-26-2019 End: 08-26-2019 take 1 tablet by mouth twice daily Apixaban 5 MG tablet Discontinued 5 mg PO TWICE A DAY 60 July 26, 2019 12:00am August 26, 2019 4:16pm bicalutamide 50 mg oral tablet (12 sources) Androgen Receptor Inhibitor Start: 08-24-2016 End: 12-07-2017 take 1 tablet by mouth once daily Bicalutamide 50 MG tablet Discontinued 50 mg PO DAILY August 24, 2016 12:00am December 07, 2017 9:18am cephalexin 500 mg oral tablet (4 sources) Cephalosporin Antibacterial Start: 04-08-2014 End: 05-29-2014 take 1 tablet by mouth three times daily CEPHALEXIN 500 MG TABS One tablet by mouth three times daily CEPHALEXIN [id number] Ruth Miles RN ciprofloxacin 250 mg oral tablet (10 sources) Quinolone Antimicrobial Start: 01-17-2014 End: 02-06-2014 take 1 tablet by mouth twice daily Ciprofloxacin Hcl 250 MG tablet Discontinued 250 mg PO TWICE A DAY January 17, 2014 12:00am February 06, 2014 7:54am 0.8 ml enoxaparin sodium 100 mg/ml prefilled syringe (20 sources) Low Molecular Weight Heparin Start: 06-24-2014 End: 06-24-2014 Enoxaparin 80 MG/0.8 ML syringe Discontinued 70 mg SC Q12@0600,1800 June 24, 2014 1:00am June 24, 2014 4:07pm Continue twice daily Lovenox dosing until INR therapeutic 2-3 range desired at which point lovenox may be discontinued or as directed per your Primary Care Physician or Child Support Case Officer. Start: 06-24-2014 End: 06-25-2014 Enoxaparin 80 MG/0.8 ML syri nge Discontinued 70 mg SC Q12@0600,1800 June 24, 2014 1:00am June 25, 2014 10:29am Please continue until INR therapeutic or until otherwise directed per your supplier quality specialist. ferrous sulfate 325 mg oral tablet (10 sources) Start: 01-16-2014 End: 02-06-2014 take 1 tablet by mouth once daily Ferrous Sulfate (Iron (Ferrous Sulfate)) 325 MG tablet Discontinued 325 mg PO DAILY January 16, 2014 12:00am February 06, 2014 7:54am ibuprofen 200 mg oral tablet (4 sources) Nonsteroidal Anti-inflammatory Drug Start: 11-04-2015 End: 12-01-2015 take 2 tablets by mouth once daily IBUPROFEN 200 MG TABS Two tablets by mouth daily IBUPROFEN [id number] Santos Sutton MD loperamide hydrochloride 2 mg oral tablet (2 sources) Opioid Agonist Start: 12-06-2016 IMODIUM A-D 2 MG TABS PRN LOPERAMIDE HCL [id number] Santos Sutton MD MULTIPLE VITAMIN (2 sources) Start: 04-08-2014 take 1 tablet by mouth once daily MULTIVITAMINS TABS One tablet by mouth daily MULTIPLE VITAMIN Ruth Miles RN 24 hr oxybutynin chloride 10 mg extended release oral tablet (20 sources) Cholinergic Muscarinic Antagonist Start: 01-17-2014 End: 02-06-2014 take 1 tablet by mouth once daily Oxybutynin Chloride (Oxybutynin Chloride Er) 10 MG Tab.Er.24 Discontinued 10 mg PO DAILY January 17, 2014 12:00am February 06, 2014 7:54am Start: 01-16-2014 End: 01-17-2014 take 1 tablet by mouth once daily Oxybutynin Chloride 5 MG tablet Discontinued 5 mg PO DAILY January 16, 2014 12:00am January 17, 2014 2:15pm predniSONE 10 mg oral tablet (10 sources) Start: 06-23-2014 End: 06-24-2014 take 2 tablets by mouth once daily Prednisone 10 MG tablet Discontinued 20 mg PO DAILY June 23, 2014 1:00am June 24, 2014 3:55pm Start: 06-23-2014 End: 06-24-2014 take 20 mg by mouth once daily Prednisone Discontinued 20 MG PO DAILY June 23, 2014 1:00am June 24, 2014 3:55pm rivaroxaban 20 mg oral tablet (20 sources) Factor Xa Inhibitor Start: 11-04-2015 End: 06-13-2016 take 1 tablet by mouth once daily XARELTO 20 MG TABS One tablet by mouth daily RIVAROXABAN [id number] Katie Stoner NP Start: 06-30-2014 End: 07-25-2014 take 1 tablet by mouth once daily in the evening XARELTO 20 MG TABS 07/14/14 on HOLD temporariliy for nosebleeds One tablet by mouth every evening RIVAROXABAN [id number] Santos Sutton MD Start: 06-24-2014 End: 06-24-2014 take 1 tablet by mouth once daily Rivaroxaban (Xarelto) 20 MG tablet Discontinued 20 mg PO DAILY June 24, 2014 1:00am June 24, 2014 3:55pm warfarin sodium 5 mg oral tablet (10 sources) Vitamin K Antagonist Start: 06-24-2014 End: 06-25-2014 take 1 tablet by mouth once daily Warfarin (Coumadin) 5 MG tablet Discontinued 5 mg PO DAILY June 24, 2014 1:00am June 25, 2014 10:29am Water (10 sources) Start: 01-21-2014 End: 02-06-2014 Water (Bulk) 4,000 ML Liquid Discontinued 1000 mL MC THREE TIMES A DAY January 21, 2014 12:00am February 06, 2014 7:54am Sterile water flush [place] with about 30cc three times a day or as needed Start: 01-21-2014 End: 02-06-2014 Water (Bulk) Discontinued 10 00 ML MC THREE TIMES A DAY January 21, 2014 12:00am February 06, 2014 7:54am Sterile water flush [place] with about 30cc three times a day or as needed Start: 01-21-2014 End: 02-06-2014 Water (Bulk) Discontinued 10 00 ML MC THREE TIMES A DAY January 20, 2014 11:00pm February 06, 2014 6:54am Sterile water flush [place] with about 30cc three times a day or as needed Problems Active Problems Problem Classification Problem Date Documented Da te Episodic/Chronic Aortic and peripheral arterial embolism or thrombosis (2 sources) Occlusion of artery of upper extremity; 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] Onset: 05-29-2014 05-29-2014 Chronic Cardiac dysrhythmias (20 sources) Paroxysmal atrial fibrillation; Translations: [Atrial fibrillation] Onset: 04-08-2014 11-04-2015 Chronic Cardiac dysrhythmias (9 sources) Palpitations; Translations: [Palpitations] 05-03-2022 Episodic Genitourinary symptoms and ill-defined conditions (10 sources) History of hematuria; Translations: [Personal history of other diseases of urinary system] 05-19-2020 Episodic Heart valve disorders (16 sources) Mitral valve prolapse; Translations: [Nonrheumatic mitral (valve) prolapse] 06-01-2022 Chronic Malaise and fatigue (1 source) Other fatigue; Translations: [Other fatigue] Onset: 05-18-2024 Episodic Nonspecific chest pain (20 sources) Chest pain; Translations: [Chest pain, unspecified] 05-19-2020 Episodic Other connective tissue disease (1 source) Pain in right finger(s); Translations: [Pain in right finger(s)] Onset: 08-12-2024 Episodic Other nutritional; endocrine; and metabolic disorders (2 sources) Body mass index 25-29 - overweight; Translations: [Overweight] Onset: 10-09-2014 06-13-2016 Chronic Urinary tract infections (10 sources) Cystitis; Translations: [Cystitis, unspecified without hematuria] 05-19-2020 Episodic Past or Other Problems Problem Classification Problem Date Documented Da te Episodic/Chronic Cancer of prostate (11 sources) History of malignant neoplasm of prostate; Translations: [Personal history of malignant neoplasm of prostate] Onset: 11-14-2023 05-19-2020 Episodic Other connective tissue disease (2 sources) Mass of body structure; Translations: [Localized swelling, mass and lump, unspecified] Onset: 05-29-2014 05-29-2014 Episodic Pleurisy; pneumothorax; pulmonary collapse (10 sources) Pleurisy; Translations: [Pleurisy] Onset: 05-19-2020 06-09-2020 Episodic Unclassified (2 sources) Body Mass Index between 19-24, adult; Translations: [Body Mass Index between 19-24, adult] Onset: 10-09-2014 10-09-2014 Episodic Results Test Name Value Interpretation Reference Range Facility Finger(s) Min 2 Viewson 07-23 Finger(s) Min 2 Views [facility] Imaging Services [address] [place] [address] Finger(s) Min 2 Views MR#: [id number] Acct: [id number] Name: DEDRA RESTREPO Rep #: [id number] : 1950 M 74 From: Deshawn Mcpherson DO PCP: Dr. Ish Black MD Status: REG CLI Study: Finger(s) Min 2 Views Date of Exam: 08/07/24 Exam# [id number] Ordering Dr: Ish Black MD PROCEDURE: FINGER(S) MIN 2 VIEWS 08/07/2024 REASON FOR EXAM: PAIN TECHNIQUE: 3 view(s) of the right 1st digit COMPARISON: None FINDINGS: Bones: No acute fracture Joints: Normal alignment. Soft tissues: Soft tissues are unremarkable. Other: RAD/Finger(s) Min 2 Views IMPRESSION: NO ACUTE FRACTURE OR DISLOCATION. [facility]: Dr. Ish Black MD Podiatric Aide: Signed Normal [facility] Wrist min 3 Viewson 08-08-19 25 Wrist min 3 Views [facility] Imaging Services [address] [place], [place] [address] Wrist min 3 Views MR#: [id number] Acct: [id number] Name: DEDRA RESTREPO Rep #: [id number] : 1950 M 74 From: Deshawn Mcpherson DO PCP: Dr. Ish Black MD Status: REG CLI Study: Wrist min 3 Views Date of Exam: 08/07/24 Exam# [id number] Ordering Dr: Ish Black MD PROCEDURE: WRIST MIN 3 VIEWS 08/07/2024 REASON FOR EXAM: PAIN TECHNIQUE: 3 views of the right wrist COMPARISON: None FINDINGS: Bones: No visible fracture. No suspicious bone lesion. Joints: Normal alignment. Soft tissues: Soft tissues are unremarkable. Other: RAD/Wrist min 3 Views IMPRESSION: NO ACUTE FRACTURE OR DISLOCATION. If acute hand or wrist trauma is suspected and initial radiographs are negative or equivocal repeat radiographs in 10-14 days MRI without IV contrast or CT without IV contrast is usually appropriate as the next imaging study. (ACR Appropriateness Criteria: Acute Hand and Wrist Trauma 2018) [facility] CC: Dr. Ish Black MD Podiatric Aide: Signed Normal [facility] 14-BI-Qrobcxs DOrdered By: Luis A Black on 04-25-2024 Vitamin D 25-Hydroxy 17.9 ng/mL [facility] Comment on above: Vitamin D 25(OH) Sta tus Range Deficiency <20 ng/mL (50nmol/L) Insufficiency 20 - 30 ng/mL (50 - 75 nmol/L) Sufficiency 30 - 100 ng/mL (75 - 250 nmol/L) Toxicity >100 ng/mL (>250 nmol/L) Absolute neutrophil countOrd ered By: Ish Black on 04-25-2024 Neutrophils (Bld) [#/Vol] 3.1 10*3/uL 2.0-7.7 [facility] Albumin to globulin ratioOrd ered By: Ish Black on 04-25-2024 Albumin/Globulin [Mass ratio] 1.1 {ratio} 0.9-2.4 [facility] Basophil percentageOrdered B y: Ish Pinedaok on 04-25-2024 Basophils/100 WBC (Bld) 0.6 % 0-1 [facility] Bilirubin, totalOrdered By: Ish Black on 04-25-2024 Bilirubin [Mass/Vol] 0.50 mg/dL 0.20-1.00 [facility] Comment on above: For patients on eltr ombopag therapy, use of Dimension [place] TBIL is not recommended. Blood urea nitrogen (BUN)/cr eatinine ratioOrdered By: Ish Black on 04-25-2024 Urea nitrogen/Creatinine [Mass ratio] 22.2 mg/mg High 10-20 [facility] CBC W/Diff, Automatedon Absolute Lymph 1.12 X10 3/uL Normal 0.83-4.51 [facility] Comment on above: Performed By: #### L 500.4050, L501.9520, L100.0100, L506.1000 #### [facility] [address] [place], [address] Absolute Neut 3.1 X10 3/uL Normal 2.0-7.7 [facility] Comment on above: Performed By: #### L 500.4050, L501.9520, L100.0100, L506.1000 #### [facility] [address] [place], [address] Basophils/100 WBC (Bld) 0.6 % Normal 0-1 [facility] Comment on above: Performed By: #### L 500.4050, L501.9520, L100.0100, L506.1000 #### [facility] [address] [place], [address] Eosinophils/100 WBC (Bld) 1.6 % Normal 0-5 [facility] Comment on above: Performed By: #### L 500.4050, L501.9520, L100.0100, L506.1000 #### [facility] [address] [place], [address] Erythrocyte distribution width (RBC) [Ratio] 13.4 % Normal 11.6-14.6 [facility] Comment on above: Performed By: #### L 500.4050, L501.9520, L100.0100, L506.1000 #### [facility] [address] [place], [address] Hematocrit (Bld) [Volume fraction] 42.2 % Normal 40-54 [facility] Comment on above: Performed By: #### L 500.4050, L501.9520, L100.0100, L506.1000 #### [facility] [address] [place], [address] Hemoglobin (Bld) [Mass/Vol] 13.8 g/dL Normal 13.0-16.5 [facility] Comment on above: Performed By: #### L 500.4050, L501.9520, L100.0100, L506.1000 #### [facility] [address] [place], [address] IG% 0.400 Normal 0.0-0.9 [facility] Comment on above: Result Comment: IG% - Immature Granulocytes (promyelocytes, myelocytes and metamyelocytes) > 1% indicates that a LEFT SHIFT is Present. Performed By: #### L 500.4050, L501.9520, L100.0100, L506.1000 #### [facility] [address] [place], [address] Lymphocytes/100 WBC (Bld) 23.0 % Normal 19-41 [facility] Comment on above: Performed By: #### L 500.4050, L501.9520, L100.0100, L506.1000 #### [facility] [address] [place], [address] MCH (RBC) [Entitic mass] 30.0 pg Normal 27.0-32.0 [facility] Comment on above: Performed By: #### L 500.4050, L501.9520, L100.0100, L506.1000 #### [facility] [address] [place], [address] MCHC (RBC) [Mass/Vol] 32.7 g/dL Normal 32-36 [facility] Comment on above: Performed By: #### L 500.4050, L501.9520, L100.0100, L506.1000 #### [facility] [address] [place], [address] MCV (RBC) [Entitic vol] 91.7 fL Normal 80-94 [facility] Comment on above: Performed By: #### L 500.4050, L501.9520, L100.0100, L506.1000 #### [facility] [address] [place], [address] Monocytes/100 WBC (Bld) 10.5 % High 0-10 [facility] Comment on above: Performed By: #### L 500.4050, L501.9520, L100.0100, L506.1000 #### [facility] [address] [place], [address] Neutrophils/100 WBC (Bld) 63.9 % Normal 47-70 [facility] Comment on above: Performed By: #### L 500.4050, L501.9520, L100.0100, L506.1000 #### [facility] [address] [place], [address] Nucleated RBC (Bld) [#/Vol] 0 10*3/uL Normal 0-5 [facility] Comment on above: Performed By: #### L 500.4050, L501.9520, L100.0100, L506.1000 #### [facility] [address] [place], [address] Platelet mean volume (Bld) [Entitic vol] 10.6 fL Normal 6.2-12.0 [facility] Comment on above: Performed By: #### L 500.4050, L501.9520, L100.0100, L506.1000 #### [facility] [address] [place], [address] Platelets (Bld) [#/Vol] 179 10*3/uL Normal 150-450 [facility] Comment on above: Performed By: #### L 500.4050, L501.9520, L100.0100, L506.1000 #### [facility] [address] [place], [address] RBC (Bld) [#/Vol] 4.60 10*6/uL Normal 4.6-6.2 [facility] Comment on above: Performed By: #### L 500.4050, L501.9520, L100.0100, L506.1000 #### [facility] [address] [place], [address] RDW SD 44.9 fl High 35.1-43.9 [facility] Comment on above: Performed By: #### L 500.4050, L501.9520, L100.0100, L506.1000 #### [facility] [address] [place], [address] WBC (Bld) [#/Vol] 4.9 10*3/uL Normal 4.4-11.[address] [facility] Comment on above: Performed By: #### L 500.4050, L501.9520, L100.0100, L506.1000 #### [facility] [address] [place], [address] Carbon dioxide measurementOr dered By: Ish Black on 04-25-2024 CO2 [Moles/Vol] 29.0 mmol/L 21.0-32.0 [facility] Chloride measurementOrdered By: Ish Black on 04-25-2024 Chloride [Moles/Vol] 107 mmol/L 98-107 [facility] Comprehensive Metabolic Prof ilon 04-25-2024 Albumin [Mass/Vol] 3.8 g/dL Normal 3.2-5.[address] [facility] Comment on above: Performed By: #### L 500.4050, L501.9520, L100.0100, L506.1000 #### [facility] [address] [place], [address] Albumin/Globulin [Mass ratio] 1.1 {ratio} Normal 0.9-2.4 [facility] Comment on above: Performed By: #### L 500.4050, L501.9520, L100.0100, L506.1000 #### [facility] [address] [place], [address] ALK P 123 U/L High 45-117 [facility] Comment on above: Performed By: #### L 500.4050, L501.9520, L100.0100, L506.1000 #### [facility] [address] [place], [address] ALT [Catalytic activity/Vol] 30 U/L Normal 16-61 [facility] Comment on above: Performed By: #### L 500.4050, L501.9520, L100.0100, L506.1000 #### [facility] [address] [place], [address] AST [Catalytic activity/Vol] 26 U/L Normal 15-37 [facility] Comment on above: Performed By: #### L 500.4050, L501.9520, L100.0100, L506.1000 #### [facility] [address] [place], [address] Bilirubin [Mass/Vol] 0.50 mg/dL Normal 0.20-1.00 [facility] Comment on above: Result Comment: For patients on eltrombopag therapy, use of Dimension [place] TBIL is not recommended. Performed By: #### L 500.4050, L501.9520, L100.0100, L506.1000 #### [facility] [address] [place], [address] BUN/CRE 22.2 RATIO High 10-20 [facility] Comment on above: Performed By: #### L 500.4050, L501.9520, L100.0100, L506.1000 #### [facility] Laboratory [address] [place], [address] CA,Total 9.1 mg/dL Normal 8.5-10.1 [facility] Comment on above: Performed By: #### L 500.4050, L501.9520, L100.0100, L506.1000 #### [facility] Laboratory [address] [place], [address] Chloride [Moles/Vol] 107 mmol/L Normal 98-107 [facility] Comment on above: Performed By: #### L 500.4050, L501.9520, L100.0100, L506.1000 #### [facility] Laboratory [address] [place], [address] CO2 [Moles/Vol] 29.0 mmol/L Normal 21.0-32.0 [facility] Comment on above: Performed By: #### L 500.4050, L501.9520, L100.0100, L506.1000 #### [facility] Laboratory [address] [place], [address] Creatinine [Mass/Vol] 0.95 mg/dL Normal 0.70-1.30 [facility] Comment on above: Result Comment: The validity of the calculated GFR GFRAA in patients over 70 years has not been determined. Clinical correlation is essential. Performed By: #### L 500.4050, L501.9520, L100.0100, L506.1000 #### [facility] Laboratory [address] [place], [address] EST GFR - AA 100 mL/min Normal >60 [facility] Comment on above: Result Comment: Afri can Austrian GFR Calc Performed By: #### L 500.4050, L501.9520, L100.0100, L506.1000 #### [facility] Laboratory [address] [place], [address] GAP 2 Low 5-15 [facility] Comment on above: Performed By: #### L 500.4050, L501.9520, L100.0100, L506.1000 #### [facility] Laboratory [address] [place], [address] GFR/1.73 sq M.predicted among non-blacks MDRD (S/P/Bld) [Vol rate/Area] 83 mL/min/{1.73_m2} Normal >60 [facility] Comment on above: Result Comment: Non- GFR Calc Performed By: #### L 500.4050, L501.9520, L100.0100, L506.1000 #### [facility] Laboratory [address] [place], [address] Globulin (S) [Mass/Vol] 3.5 g/dL Normal 2.2-4.2 [facility] Comment on above: Performed By: #### L 500.4050, L501.9520, L100.0100, L506.1000 #### [facility] Laboratory [address] [place], [address] Glucose [Mass/Vol] 111 mg/dL High 74-[address] [facility] Comment on above: Result Comment: Fast ing Glucose result from 100 to 125 mg/dL suggests IMPAIRED HOMEOSTASIS per A.D.A. criteria. Performed By: #### L 500.4050, L501.9520, L100.0100, L506.1000 #### [facility] Laboratory [address] [place], [address] Potassium [Moles/Vol] 3.9 mmol/L Normal 3.5-5.1 [facility] Comment on above: Performed By: #### L 500.4050, L501.9520, L100.0100, L506.1000 #### [facility] Laboratory [address] [place], [address] Sodium [Moles/Vol] 138 mmol/L Normal 136-[address] [facility] Comment on above: Performed By: #### L 500.4050, L501.9520, L100.0100, L506.1000 #### [facility] Laboratory [address] [place], [address] T PROT 7.3 g/dL Normal 6.4-8.2 [facility] Comment on above: Performed By: #### L 500.4050, L501.9520, L100.0100, L506.1000 #### [facility] Laboratory [address] [place], [address] Urea nitrogen [Mass/Vol] 21 mg/dL High 7-18 [facility] Comment on above: Performed By: #### L 500.4050, L501.9520, L100.0100, L506.1000 #### [facility] Laboratory [address] [place], [address] Eosinophil percentageOrdered By: Ish Black on 04-25-2024 Eosinophils/100 WBC (Bld) 1.6 % 0-5 [facility] Erythrocyte distribution wid th (RBC) [Ratio]Ordered By: Ish Black on 04-25-2024 Erythrocyte distribution width (RBC) [Entitic vol] 44.9 fL High 35.1-43.[address] [facility] Erythrocyte distribution wid th ratioOrdered By: Ish Black on 04-25-2024 Erythrocyte distribution width (RBC) [Ratio] 13.4 % 11.6-14.6 [facility] Estimated glomerular filtrat ion rate (GFR) AmericanOrdered By: Ihs Black on 04-25-2024 Estimated GFR (MDRD) Amer 100 mL/min >60 [facility] Comment on above: GFR Calc Glomerular filtration rate ( GFR) estimationOrdered By: Ish Black on 04-25-2024 Estimated GFR (MDRD) Non-Af Amer 83 mL/min >60 [facility] Comment on above: Non- GFR Calc Glucose measurementOrdered B y: Ish Black on 04-25-2024 Glucose [Mass/Vol] 111 mg/dL High 74-[address] [facility] Comment on above: Fasting Glucose resu lt from 100 to 125 mg/dL suggests IMPAIRED HOMEOSTASIS per A.D.A. criteria. Hematocrit Auto (Bld) [Volum e fraction]Ordered By: Ish Black on 04-25-2024 Hematocrit (Bld) [Volume fraction] 42.2 % 40-54 [facility] Hemoglobin measurementOrdere d By: Ish Black on 04-25-2024 Hemoglobin (Bld) [Mass/Vol] 13.8 g/dL 13.0-16.5 [facility] Immature granulocytes/100 WB C Auto (Bld)Ordered By: Ish Black 04-25-2024 Immature granulocytes/100 WBC (Bld) 0.400 % 0.0-0.9 [facility] Comment on above: IG% - Immature Granu locytes (promyelocytes, myelocytes and metamyelocytes) > 1% indicates that a LEFT SHIFT is Present. Laboratory - Chemistry and C hemistry - challengeOrdered By: Ish Black on 04-25-2024 AST [Catalytic activity/Vol] 26 U/L 15-37 [facility] Lymphocytes Auto (Unsp spec) [#/Vol]Ordered By: Ish Black 04-25-2024 Lymphocytes (Bld) [#/Vol] 1.12 10*3/uL 0.83-4.5 1 [facility] Lymphocytes/100 WBC Auto (Un sp spec)Ordered By: Ish Black on 04-25-2024 Lymphocytes/100 WBC (Bld) 23.0 % 19-41 [facility] MCV (mean corpuscular volume ) determinationOrdered By: Ish Black on 04-25-2024 MCV (RBC) [Entitic vol] 91.7 fL 80-94 [facility] Mean corpuscular hemoglobin (MCH) determinationOrdered By: Ish Black on 04-25-2024 MCH (RBC) [Entitic mass] 30.0 pg 27.0-32.0 [facility] Mean corpuscular hemoglobin concentration (MCHC) determinationOrdered By: Ish Black on 04-25-2024 MCHC (RBC) [Mass/Vol] 32.7 g/dL 32-36 [facility] Mean platelet volume determi nationOrdered By: Ish Black on 04-25-2024 Platelet mean volume (Bld) [Entitic vol] 10.6 fL 6.2-12.0 [facility] Monocyte percentageOrdered B y: Ish Black on 04-25-2024 Monocytes/100 WBC (Bld) 10.5 % High 0-10 [facility] Neutrophil percentageOrdered By: Ish Black on 04-25-2024 Neutrophils/100 WBC (Bld) 63.9 % 47-70 [facility] Nucleated red blood cell per centageOrdered By: Ish Black on 04-25-2024 Nucleated RBC/100 WBC (Bld) [Ratio] 0 % 0-5 [facility] Platelet countOrdered By: Bubba Black on 04-25-2024 Platelets (Bld) [#/Vol] 179 10*3/uL 150-450 [facility] Potassium measurementOrdered By: Ish Black on 04-25-2024 Potassium [Moles/Vol] 3.9 mmol/L 3.5-5.1 [facility] RBC Auto (Bld) [#/Vol]Ordere d By: Ish Black on 04-25-2024 RBC (Bld) [#/Vol] 4.60 10*6/uL 4.6-6.2 [facility] Serum anion gap measurementO rdered By: Ish Black on 04-25-2024 Anion gap [Moles/Vol] 2 mmol/L Low 5-15 [facility] Serum globulin measurementOr dered By: Ish Black on 04-25-2024 Globulin (S) [Mass/Vol] 3.5 g/dL 2.2-4.2 [facility] Serum or plasma alanine melo otransferase (ALT) measurementOrdered By: Ish Black on 04-25-2024 ALT [Catalytic activity/Vol] 30 U/L 16-61 [facility] Serum or plasma albumin angela urement (mass/volume)Ordered By: Ish Black on 04-25-2024 Albumin [Mass/Vol] 3.8 g/dL 3.2-5.[address] [facility] Serum or plasma alkaline obed sphatase measurementOrdered By: Ish Black on 04-25-2024 ALP [Catalytic activity/Vol] 123 U/L High 45-117 [facility] Serum or plasma calcium angela urement (mass/volume)Ordered By: Ish Black on 04-25-2024 Calcium [Mass/Vol] 9.1 mg/dL 8.5-10.[address] [facility] Serum or plasma creatinine m easurement (mass/volume)Ordered By: Ish Black on 04-25-2024 Creatinine [Mass/Vol] 0.95 mg/dL 0.70-1.30 [facility] Comment on above: The validity of the calculated GFR & GFRAA in patients over 70 years has not been determined. Clinical correlation is essential. Serum or plasma urea nitroge n measurement (mass/volume)Ordered By: Ish Black on 04-25-2024 Urea nitrogen [Mass/Vol] 21 mg/dL High 7-18 [facility] Sodium levelOrdered By: Ish Black on 04-25-2024 Sodium [Moles/Vol] 138 mmol/L 136-[address] [facility] TSH QnOrdered By: Ish Black o n 04-25-2024 Thyroid Stimulating Hormone (TSH) 1.650 uIU/mL 0.358-3.740 [facility] Thyroid Stim Hormone (TSH)on 04-25-2024 TSH 1.650 uIU/mL Normal 0.358-3.740 [facility] Comment on above: Performed By: #### L 500.4050, L501.9520, L100.0100, L506.1000 #### [facility] Laboratory [address] [place], [address] Total proteinOrdered By: Ish Black on 04-25-2024 Protein [Mass/Vol] 7.3 g/dL 6.4-8.[address] [facility] Vitamin D,25 Hydroxyon 04-25 Vitamin D 25-OH 17.9 ng/mL Normal [facility] Comment on above: Result Comment: Catherine min D 25(OH) Status Range Deficiency <20 ng/mL (50nmol/L) Insufficiency 20 - 30 ng/mL (50 - 75 nmol/L) Sufficiency 30 - 100 ng/mL (75 - 250 nmol/L) Toxicity >100 ng/mL (>250 nmol/L) Performed By: #### L 500.4050, L501.9520, L100.0100, L506.1000 #### [facility] Laboratory [address] [place], [address] White blood cell (WBC) count Ordered By: Ish Black on 04-25-2024 WBC (Bld) [#/Vol] 4.9 10*3/uL 4.4-11.[address] [facility] CBC W/Diff, Automatedon 07- Absolute Lymph 0.83 X10 3/uL Normal 0.83-4.51 [facility] Comment on above: Performed By: #### L 506.1000, L100.0100, L501.9520, L501.9940, L500.4050 #### [facility] Laboratory [address] [place], [address] Absolute Neut 2.4 X10 3/uL Normal 2.0-7.7 [facility] Comment on above: Performed By: #### L 506.1000, L100.0100, L501.9520, L501.9940, L500.4050 #### [facility] Laboratory [address] [place], [address] Basophils/100 WBC (Bld) 0.8 % Normal 0-1 [facility] Comment on above: Performed By: #### L 506.1000, L100.0100, L501.9520, L501.9940, L500.4050 #### [facility] Laboratory [address] [place], [address] Eosinophils/100 WBC (Bld) 2.4 % Normal 0-5 [facility] Comment on above: Performed By: #### L 506.1000, L100.0100, L501.9520, L501.9940, L500.4050 #### [facility] Laboratory [address] [place], [address] Erythrocyte distribution width (RBC) [Ratio] 13.2 % Normal 11.6-14.6 [facility] Comment on above: Performed By: #### L 506.1000, L100.0100, L501.9520, L501.9940, L500.4050 #### [facility] Laboratory [address] [place], [address] Hematocrit (Bld) [Volume fraction] 40.2 % Normal 40-54 [facility] Comment on above: Performed By: #### L 506.1000, L100.0100, L501.9520, L501.9940, L500.4050 #### [facility] Laboratory [address] [place], [address] Hemoglobin (Bld) [Mass/Vol] 13.4 g/dL Normal 13.0-16.5 [facility] Comment on above: Performed By: #### L 506.1000, L100.0100, L501.9520, L501.9940, L500.4050 #### [facility] Laboratory [address] [place], [address] IG% 0.500 Normal 0.0-0.9 [facility] Comment on above: Result Comment: IG% - Immature Granulocytes (promyelocytes, myelocytes and metamyelocytes) > 1% indicates that a LEFT SHIFT is Present. Performed By: #### L 506.1000, L100.0100, L501.9520, L501.9940, L500.4050 #### [facility] Laboratory [address] [place], [address] Lymphocytes/100 WBC (Bld) 21.9 % Normal 19-41 [facility] Comment on above: Performed By: #### L 506.1000, L100.0100, L501.9520, L501.9940, L500.4050 #### [facility] [address] [place], [address] MCH (RBC) [Entitic mass] 30.6 pg Normal 27.0-32.0 [facility] Comment on above: Performed By: #### L 506.1000, L100.0100, L501.9520, L501.9940, L500.4050 #### [facility] Laboratory [address] [place], [address] MCHC (RBC) [Mass/Vol] 33.3 g/dL Normal 32-36 [facility] Comment on above: Performed By: #### L 506.1000, L100.0100, L501.9520, L501.9940, L500.4050 #### [facility] Laboratory [address] [place], [address] MCV (RBC) [Entitic vol] 91.8 fL Normal 80-94 [facility] Comment on above: Performed By: #### L 506.1000, L100.0100, L501.9520, L501.9940, L500.4050 #### [facility] [address] [place], [address] Monocytes/100 WBC (Bld) 10.8 % High 0-10 [facility] Comment on above: Performed By: #### L 506.1000, L100.0100, L501.9520, L501.9940, L500.4050 #### [facility] [address] [place], [address] Neutrophils/100 WBC (Bld) 63.6 % Normal 47-70 [facility] Comment on above: Performed By: #### L 506.1000, L100.0100, L501.9520, L501.9940, L500.4050 #### [facility] Laboratory [address] [place], [address] Nucleated RBC (Bld) [#/Vol] 0 10*3/uL Normal 0-5 [facility] Comment on above: Performed By: #### L 506.1000, L100.0100, L501.9520, L501.9940, L500.4050 #### [facility] Laboratory [address] [place], [address] Platelet mean volume (Bld) [Entitic vol] 11.3 fL Normal 6.2-12.0 [facility] Comment on above: Performed By: #### L 506.1000, L100.0100, L501.9520, L501.9940, L500.4050 #### [facility] [address] [place], [address] Platelets (Bld) [#/Vol] 164 10*3/uL Normal 150-450 [facility] Comment on above: Performed By: #### L 506.1000, L100.0100, L501.9520, L501.9940, L500.4050 #### [facility] [address] [place], [address] RBC (Bld) [#/Vol] 4.38 10*6/uL Low 4.6-6.2 [facility] Comment on above: Performed By: #### L 506.1000, L100.0100, L501.9520, L501.9940, L500.4050 #### [facility] Laboratory [address] [place], [address] RDW SD 44.7 fl High 35.1-43.9 [facility] Comment on above: Performed By: #### L 506.1000, L100.0100, L501.9520, L501.9940, L500.4050 #### [facility] [address] [place], [address] WBC (Bld) [#/Vol] 3.8 10*3/uL Low 4.4-11.[address] [facility] Comment on above: Performed By: #### L 506.1000, L100.0100, L501.9520, L501.9940, L500.4050 #### [facility] [address] [place], [address] Comprehensive Metabolic Prof [facility] 11-02-2023 Albumin [Mass/Vol] 3.7 g/dL Normal 3.2-5.[address] [facility] Comment on above: Performed By: #### L 506.1000, L100.0100, L501.9520, L501.9940, L500.4050 #### [facility] [address] [place], [address] Albumin/Globulin [Mass ratio] 1.1 {ratio} Normal 0.9-2.4 [facility] Comment on above: Performed By: #### L 506.1000, L100.0100, L501.9520, L501.9940, L500.4050 #### [facility] [address] [place], [address] ALK P 118 U/L High 45-117 [facility] Comment on above: Performed By: #### L 506.1000, L100.0100, L501.9520, L501.9940, L500.4050 #### [facility] Laboratory [address] [place], [address] ALT [Catalytic activity/Vol] 21 U/L Normal 16-61 [facility] Comment on above: Performed By: #### L 506.1000, L100.0100, L501.9520, L501.9940, L500.4050 #### [facility] [address] [place], [address] AST [Catalytic activity/Vol] 20 U/L Normal 15-37 [facility] Comment on above: Performed By: #### L 506.1000, L100.0100, L501.9520, L501.9940, L500.4050 #### [facility] [address] [place], [address] Bilirubin [Mass/Vol] 0.50 mg/dL Normal 0.20-1.00 [facility] Comment on above: Result Comment: For patients on eltrombopag therapy, use of Dimension [place] TBIL is not recommended. Performed By: #### L 506.1000, L100.0100, L501.9520, L501.9940, L500.4050 #### [facility] [address] [place], [address] BUN/CRE 20.1 RATIO High 10-20 [facility] Comment on above: Performed By: #### L 506.1000, L100.0100, L501.9520, L501.9940, L500.4050 #### [facility] Laboratory [address] [place], [address] CA,Total 8.7 mg/dL Normal 8.5-10.1 [facility] Comment on above: Performed By: #### L 506.1000, L100.0100, L501.9520, L501.9940, L500.4050 #### [facility] [address] [place], [address] Chloride [Moles/Vol] 107 mmol/L Normal 98-107 [facility] Comment on above: Performed By: #### L 506.1000, L100.0100, L501.9520, L501.9940, L500.4050 #### [facility] [address] [place], [address] CO2 [Moles/Vol] 24.0 mmol/L Normal 21.0-32.0 [facility] Comment on above: Performed By: #### L 506.1000, L100.0100, L501.9520, L501.9940, L500.4050 #### [facility] [address] [place], [address] Creatinine [Mass/Vol] 0.84 mg/dL Normal 0.70-1.30 [facility] Comment on above: Result Comment: The validity of the calculated GFR GFRAA in patients over 70 years has not been determined. Clinical correlation is essential. Performed By: #### L 506.1000, L100.0100, L501.9520, L501.9940, L500.4050 #### [facility] [address] [place], [address] EST GFR - AA 115 mL/min Normal >60 [facility] Comment on above: Result Comment: Afri can Austrian GFR Calc Performed By: #### L 506.1000, L100.0100, L501.9520, L501.9940, L500.4050 #### [facility] [address] [place], [address] GAP 5 Normal 5-15 [facility] Comment on above: Performed By: #### L 506.1000, L100.0100, L501.9520, L501.9940, L500.4050 #### [facility] [address] [place], [address] GFR/1.73 sq M.predicted among non-blacks MDRD (S/P/Bld) [Vol rate/Area] 95 mL/min/{1.73_m2} Normal >60 [facility] Comment on above: Result Comment: Non- GFR Calc Performed By: #### L 506.1000, L100.0100, L501.9520, L501.9940, L500.4050 #### [facility] [address] [place], [address] Globulin (S) [Mass/Vol] 3.4 g/dL Normal 2.2-4.2 [facility] Comment on above: Performed By: #### L 506.1000, L100.0100, L501.9520, L501.9940, L500.4050 #### [facility] [address] [place], [address] Glucose [Mass/Vol] 86 mg/dL Normal 74-[address] [facility] Comment on above: Performed By: #### L 506.1000, L100.0100, L501.9520, L501.9940, L500.4050 #### [facility] [address] [place], [address] Potassium [Moles/Vol] 4.0 mmol/L Normal 3.5-5.1 [facility] Comment on above: Performed By: #### L 506.1000, L100.0100, L501.9520, L501.9940, L500.4050 #### [facility] [address] [place], [address] Sodium [Moles/Vol] 136 mmol/L Normal 136-[address] [facility] Comment on above: Performed By: #### L 506.1000, L100.0100, L501.9520, L501.9940, L500.4050 #### [facility] [address] [place], [address] T PROT 7.1 g/dL Normal 6.4-8.2 [facility] Comment on above: Performed By: #### L 506.1000, L100.0100, L501.9520, L501.9940, L500.4050 #### [facility] [address] [place], [address] Urea nitrogen [Mass/Vol] 17 mg/dL Normal 7-18 [facility] Comment on above: Performed By: #### L 506.1000, L100.0100, L501.9520, L501.9940, L500.4050 #### [facility] [address] [place], [address] PSA,Total- Diagnosticon 10-22 PSA, DIAGNOSTIC 0.08 ng/mL Normal 0.0-4.0 [facility] Comment on above: Result Comment: This test was performed using the TPSA assay method for the [employer] chemistry system. Values obtained with different assay methods cannot be used interchangably. When changing PSA assays in the course of monitoring a patient, additional sequential testing should be carried out to confirm baseline values. Performed By: #### L 506.1000, L100.0100, L501.9520, L501.9940, L500.4050 #### [facility] [address] [place], [address] Thyroid Stim Hormone (TSH)on 11-02-2023 TSH 1.65 uIU/mL Normal 0.358-3.74 [facility] Comment on above: Performed By: #### L 506.1000, L100.0100, L501.9520, L501.9940, L500.4050 #### [facility] [address] [place], [address] Vitamin D,25 Hydroxyon 11-01 Vitamin D 25-OH 23.0 ng/mL Normal [facility] Comment on above: Result Comment: Catherine min D 25(OH) Status Range Deficiency <20 ng/mL (50nmol/L) Insufficiency 20 - 30 ng/mL (50 - 75 nmol/L) Sufficiency 30 - 100 ng/mL (75 - 250 nmol/L) Toxicity >100 ng/mL (>250 nmol/L) Performed By: #### L 506.1000, L100.0100, L501.9520, L501.9940, L500.4050 #### [facility] [address] [place], [address] Cardiology Visit Reporton Cardiology Visit Report [facility] [address] [place] [address] OFFICE VISIT Date of Service: 09/28/23 MR#: [id number] Acct: [id number] Name: DEDRA RESTREPO Rep #: [id number] : 1950 Provider: SETH laboy Age/Sex: 73/M Location: [facility] Status: Signed HPI HPI History of Present Illness Details: DEDRA RESTREPO, is a 73 M who presents to the office today for a cardiovascular follow-up visit. He is a gentleman with a history of paroxysmal atrial fibrillation status post DC cardioversion 4 years ago and more recently in July 2019 when he presented to the emergency room with atrial fibrillation with rapid ventricular response rate. He was DC cardioverted successfully and discharged on Eliquis for a month. His echocardiogram in May 2022 demonstrated an ejection fraction of 60% with mild diffuse mitral valve thickening. Equivocal mitral valve prolapse is noted. He denies chest, arm, jaw, or neck discomfort. He states occasional palpitations during times of stress and unchanged from previous. He denies bilateral lower extremity edema. He denies claudication. He denies shortness of breath with activity, shortness of breath at rest, orthopnea, or PND. He denies chronic cough. He denies significant, sudden weight gain. He denies lightheadedness, dizziness, near-syncope, or syncope. He denies blood in urine, blood in stool, or epistaxis. He denies fever with chills. He denies myalgia. He denies fatigue. His exercise level has remained stable. Intake Vital Signs 09/27/22 09:58 09/28/23 10:43 Height 5 ft 6 in 5 ft 6 in Weight: 175 lb BMI 28.2 BP 111/66 Blood Pressure Location Lt brachial Position Sitting Respiration 16 Pulse 65 Pulse Source NIBP Intake Visit Reasons: 1 Y FU Groundskeeper Required: No Accompanied by: None Is patient in pain?: No Allergies azithromycin Allergy (Intermediate, Verified 09/28/23 10:46) Elevated liver enzymes sulfamethoxazole (From Decra) Allergy (Verified 09/28/23 10:46) PT UNSURE OF REACTION trimethoprim (From Decra) Allergy (Verified 09/28/23 10:46) PT UNSURE OF REACTION Medications ???Medication ???Instructions ???Recorded ???Confirmed ???Type multivitamin with folic acid 400 1 tab PO DAILY 11/25/13 09/28/23 History mcg tablet lorazepam 0.5 mg tablet 0.5 mg PO DAILY PRN PRN Anxiety 08/24/16 09/28/23 History dicyclomine 10 mg capsule 10 mg PO PRN PRN Diarrhea/Loose 08/26/19 09/28/23 History Stools aspirin 81 mg chewable tablet 81 mg PO .COMPLEX 09/27/22 09/28/23 History sertraline 50 mg tablet 50 mg PO QDAY 09/28/23 09/28/23 History Ejection fraction %: 60 PFSH Medical History Pleurisy (05/19/20) Atrial fibrillation with rapid ventricular response (07/26/19) History of prostate cancer Paroxysmal atrial fibrillation Anxiety Surgical History History of cardioversion (07/26/19) History of tonsillectomy Hx of appendectomy History of prostate surgery Family History Father Cancer Mother Cancer Social History Smoking Status: Never smoker alcohol intake: never substance use type: does not use caffeine: Yes Type: tea Number of servings: 1 ROS Const Const: Negative for fatigue, weakness, headache(s), frequent falls, difficulty sleeping or excessive sweating Eyes Eyes: Negative for loss of peripheral vision, transient loss of vision, blurry vision, double vision or tunnel vision ENT ENT: Negative for headache(s), dizziness, Nosebleed/epistaxis or balance problems Cardio Chest Pain: No Palpitations: Yes (Occasionally with increased stress-unchanged from previous) feels like its: fast Edema: None Muscle aches with walking: None Resp Respiratory: Negative for SOB with activity, SOB at rest, SOB orthopnea SOB lying down, Cough or paroxysmal nocturnal dyspnea GI GI: Negative nausea, vomiting, heartburn or black,tarry stools : Negative for hematuria Musc Musc: Negative for muscle aches/ myalgia, muscle weakness, joint pain or balance problems Skin Skin: Negative non-healing lesions, rash or unusual bruising Neuro Neuro: Negative for dizziness, lightheadedness, near syncope, syncope, frequent falls, headache(s), weakness, blurry vision, double vision or lack of coordination [place] Hematologic/Lymphat ic: Negative for easy bleeding or easy bruising Endo Endo: Negative for fatigue, excessive sweating or increased thirst/drinking Psych Psych: Negative for anxiety or depression Allergy Allergy/Immunology: Negative for hives and Negative for rash Supplemental Info Supplemental Information Echocardiogram 06/13/2022 Interpretation Summary (more content not included)... Normal [facility] Laboratory - Microbiology an d Antimicrobial susceptibilityOrdered By: Ish Black on 02-20-2023 SARS-CoV-2 (COVID-19) RNA KEYSHAWN+probe Ql (Unsp spec) SARS-CoV-2 (COVID 19 PCR) [facility] Laboratory - Microbiology an d Antimicrobial susceptibilityOrdered By: Ish Black on 02-15-2023 SARS-CoV-2 (COVID-19) RNA KEYSHAWN+probe Ql (Unsp spec) SARS-CoV-2 (COVID 19) [facility] No Panel InformationOrdered By: Ish Black on 02-15-2023 Influenza Types A,B Direct FA (CARLITOS) [facility] RSV Ag EIAOrdered By: Ish sanchez on 02-15-2023 RSV Ag Immune stain Ql (Tiss) [facility] Absolute lymphocyte countOrd ered By: Ish Black on 10-18-2022 Lymphocytes Auto (Unsp spec) [#/Vol] 1.07 10*3/uL 0.83-4.51 [facility] Basophil percentageOrdered B y: sIh Black on 10-18-2022 Basophils/100 WBC (Bld) 0.7 % 0-1 [facility] Bilirubin [Mass/Vol] 0.40 mg/dL 0.20-1.00 [facility] Comment on above: For patients on eltr ombopag therapy, use of Dimension [place] TBIL is not recommended. Chloride [Moles/Vol] 108 mmol/L 98-107 [facility] Eosinophils/100 WBC (Bld) 2.4 % 0-5 [facility] Glucose [Mass/Vol] 79 mg/dL 74-[address] [facility] Neutrophils (Bld) [#/Vol] 2.8 10*3/uL 2.0-7.7 [facility] Neutrophils/100 WBC (Bld) 62.2 % 47-70 [facility] Potassium [Moles/Vol] 4.0 mmol/L 3.5-5.1 [facility] Protein [Mass/Vol] 7.5 g/dL 6.4-8.[address] [facility] Sodium [Moles/Vol] 137 mmol/L 136-[address] [facility] WBC (Bld) [#/Vol] 4.5 10*3/uL 4.4-11.[address] [facility] Blood erythrocytes count (nu mber/volume)Ordered By: Ish Black on 10-18-2022 RBC (Bld) [#/Vol] 4.54 10*6/uL 4.6-6.2 [facility] Blood hemoglobin measurement (mass/volume)Ordered By: Ish Black on 10-18-2022 Hemoglobin (Bld) [Mass/Vol] 14.0 g/dL 13.0-16.5 [facility] Blood lymphocytes/100 leukoc ytesOrdered By: Ish Black on 10-18-2022 Lymphocytes/100 WBC (Bld) 23.6 % 19-41 [facility] Blood monocytes/100 leukocyt esOrdered By: Ish Black on 10-18-2022 Monocytes/100 WBC (Bld) 10.4 % 0-10 [facility] Blood platelet mean volumeOr dered By: Ish Black on 10-18-2022 Platelet mean volume (Bld) [Entitic vol] 10.8 fL 6.2-12.0 [facility] Determination of erythrocyte mean corpuscular volume (MCV)Ordered By: Ish Black on 10-18-2022 MCV (RBC) [Entitic vol] 93.4 fL 80-94 [facility] Hematocrit Auto (Bld) [Volum e fraction]Ordered By: Ish Black on 10-18-2022 Hematocrit (Bld) [Volume fraction] 42.4 % 40-54 [facility] Laboratory - Chemistry and C hemistry - challengeOrdered By: Ish Black on 10-18-2022 ALP [Catalytic activity/Vol] 109 U/L 45-117 [facility] ALT [Catalytic activity/Vol] 24 U/L 16-61 [facility] CO2 [Moles/Vol] 24.0 mmol/L 21.0-32.0 [facility] Globulin (S) [Mass/Vol] 3.8 g/dL 2.2-4.2 [facility] Urea nitrogen/Creatinine [Mass ratio] 22.6 mg/mg 10-20 [facility] Laboratory - Hematology and Cell countsOrdered By: Ish Black on 10-18-2022 Erythrocyte distribution width (RBC) [Entitic vol] 45.7 fL 35.1-43.[address] [facility] Erythrocyte distribution width (RBC) [Ratio] 13.4 % 11.6-14.6 [facility] Immature granulocytes/100 WBC (Bld) 0.700 % 0.0-0.9 [facility] Comment on above: IG% - Immature Granu locytes (promyelocytes, myelocytes and metamyelocytes) > 1% indicates that a LEFT SHIFT is Present. MCH (RBC) [Entitic mass] 30.8 pg 27.0-32.0 [facility] Nucleated RBC/100 WBC (Bld) [Ratio] 0 % 0-5 [facility] MCHC Auto (RBC) [Mass/Vol]Or dered By: Ish Black on 10-18-2022 MCHC (RBC) [Mass/Vol] 33.0 g/dL 32-36 [facility] No Panel InformationOrdered By: Ish Black on 10-18-2022 Estimated GFR (MDRD) Amer 103 mL/min >60 [facility] Comment on above: GFR Calc Estimated GFR (MDRD) Non-Af Amer 85 mL/min >60 [facility] Comment on above: Non- GFR Calc Prostate Specific Antigen Screen 0.08 ng/mL 0.00-4.00 [facility] Comment on above: This test was perfor med using the TPSA assay method for [employer] chemistry system. Values obtained with differentassay methods cannot be used interchangably.When changing PSA assays in the course of monitoring apatient, additional sequential testing should be carriedout to confirm baseline values. Thyroid Stimulating Hormone (TSH) 1.86 uIU/mL 0.358-3.74 [facility] Vitamin D 25-Hydroxy 35.4 ng/mL [facility] Comment on above: Vitamin D 25(OH) Sta tus Range Deficiency <20 ng/mL (50nmol/L) Insufficiency 20 - 30 ng/mL (50 - 75 nmol/L) Sufficiency 30 - 100 ng/mL (75 - 250 nmol/L) Toxicity >100 ng/mL (>250 nmol/L) Platelets bldOrdered By: Ish Black on 10-18-2022 Platelets (Bld) [#/Vol] 166 10*3/uL 150-450 [facility] Serum or plasma albumin angela urement (mass/volume)Ordered By: Ish Black 10-18-2022 Albumin [Mass/Vol] 3.7 g/dL 3.2-5.[address] [facility] Serum or plasma albumin/glob ulin mass ratioOrdered By: Ish Black 10-18-2022 Albumin/Globulin [Mass ratio] 1.0 {ratio} 0.9-2.4 [facility] Serum or plasma calcium angela urement (mass/volume)Ordered By: Ish Black 10-18-2022 Calcium [Mass/Vol] 8.7 mg/dL 8.5-10.[address] [facility] Serum or plasma creatinine m easurement (mass/volume)Ordered By: Ish Black 10-18-2022 Creatinine [Mass/Vol] 0.93 mg/dL 0.70-1.30 [facility] Comment on above: The validity of the calculated GFR & GFRAA in patients over 70 years has not been determined. Clinical correlation is essential. Serum or plasma urea nitroge n measurement (mass/volume)Ordered By: Ish Black on 10-18-2022 Urea nitrogen [Mass/Vol] 21 mg/dL 7-18 [facility] Thin prep Papanicolaou smear with manual screeningOrdered By: Ish Black on 10-18-2022 Thin prep Papanicolaou smear with manual screening 18 U/L 15-37 [facility] Thin prep Papanicolaou smear with manual screening 5 5-15 [facility] Throat specimen bacteria juwan ntification by cultureOrdered By: Dr. Monteiro on 08-27-2022 Bacteria identified Cx Nom (Throat) [facility] Throat specimen bacteria juwan ntification by cultureOrdered By: Jason Monteiro on 08-25-2022 Bacteria identified Cx Nom (Throat) [facility] Gram stain for investigation of transfusion reactionOrdered By: Dr. Black on 08-04-2022 Microscopic observation Gram stain Nom (Unsp spec) [facility] Microbial respiratory cultur eOrdered By: Dr. Black on 08-04-2022 Bacteria identified Respiratory culture Nom (Unsp spec) or Staphylococcus aureus isolated. [facility] Basophil percentageOrdered B y: Dr. Black on 08-02-2022 Bilirubin [Mass/Vol] 0.40 mg/dL 0.20-1.00 [facility] Comment on above: For patients on eltr ombopag therapy, use of Dimension [place] TBIL is not recommended. Chloride [Moles/Vol] 106 mmol/L 98-107 [facility] Glucose [Mass/Vol] 104 mg/dL 74-[address] [facility] Comment on above: Fasting Glucose resu lt from 100 to 125 mg/dL suggests IMPAIRED HOMEOSTASIS per A.D.A. criteria. Potassium [Moles/Vol] 3.6 mmol/L 3.5-5.1 [facility] Protein [Mass/Vol] 7.3 g/dL 6.4-8.[address] [facility] Sodium [Moles/Vol] 136 mmol/L 136-[address] [facility] COVID-19 virus antigen assay Ordered By: Dr. Black on 08-02-2022 SARS-CoV-2 (COVID-19) Ag IA.rapid Ql (Resp) Not detected Not Detect [facility] Comment on above: Normal Reference Ran ge: Not DetectedMethod:(RT-PCR) real-time reverse transcriptase PCRLuminex MIRIAM Instrument*The Food and Drug Administration (FDA) has issued an Emergency Use Authorization (EAU) for the MIRIAM SARS-CoV-2 Assay for the rapid detection of the virus that causes COVID-19. This test has been validated, but the [facility] independent review of this validation is pending.*Negative results do not preclude infection and should not be used as the sole basis for treatment or patient management. Optimum specimen types and timing for peak viral levels during infections caused by SARS-CoV-2 have not been determined. Collection of multiple specimens from the same patient may be necessary to detect the virus. The possibility of a false negative result should be considered if the patient has clinical presentation or has had recent exposure. Gram stain for investigation of transfusion reactionOrdered By: Ish Black on 08-02-2022 Microscopic observation Gram stain Nom (Unsp spec) [facility] Laboratory - Chemistry and C hemistry - challengeOrdered By: Dr. Black on 08-02-2022 ALP [Catalytic activity/Vol] 211 U/L 45-117 [facility] ALT [Catalytic activity/Vol] 133 U/L 16-61 [facility] CO2 [Moles/Vol] 28.0 mmol/L 21.0-32.0 [facility] Globulin (S) [Mass/Vol] 3.9 g/dL 2.2-4.2 [facility] Urea nitrogen/Creatinine [Mass ratio] 24.8 mg/mg 10-20 [facility] Microbial respiratory cultur eOrdered By: Ish Black on 08-02-2022 Bacteria identified Respiratory culture Nom (Unsp spec) or Staphylococcus aureus isolated. [facility] No Panel InformationOrdered By: Dr. Black on 08-02-2022 Hepatitis A IgM Antibody Negative Negative [facility] Hepatitis B Core IgM Antibody Negative Negative [facility] Hepatitis C Antibody (EIA) Non-Reactive Non Reactive [facility] Hepatitis C Antibody Comment Comment . [facility] Comment on above: Not infected with HC V unless early or acute infection issuspected (which may be delayed in an immunocompromisedindividual), or other evidence exists to indicate HCVinfection.Performed at: [facility] [id number] Director: James Schulte PhD, Phone: [phone] Estimated GFR (MDRD) Amer 121 mL/min >60 [facility] Comment on above: GFR Calc Estimated GFR (MDRD) Non-Af Amer 100 mL/min >60 [facility] Comment on above: Non- GFR Calc Influenza Types A,B Direct FA ([facility]) [facility] No Panel InformationOrdered By: Ish Black on 08-02-2022 Influenza Types A,B Direct FA (CARLITOS) [facility] RSV Ag EIAOrdered By: Ish sanchez on 08-02-2022 RSV Ag Immune stain Ql (Tiss) [facility] RSV Ag EIAOrdered By: Dr. Miriam sanchez on 08-02-2022 RSV Ag Immune stain Ql (Tiss) [facility] Serum or plasma albumin angela urement (mass/volume)Ordered By: Dr. Black on 08-02-2022 Albumin [Mass/Vol] 3.4 g/dL 3.2-5.[address] [facility] Serum or plasma albumin/glob ulin mass ratioOrdered By: Dr. Black on 08-02-2022 Albumin/Globulin [Mass ratio] 0.9 {ratio} 0.9-2.4 [facility] Serum or plasma calcium angela urement (mass/volume)Ordered By: Dr. Black on 08-02-2022 Calcium [Mass/Vol] 8.7 mg/dL 8.5-10.[address] [facility] Serum or plasma creatinine m easurement (mass/volume)Ordered By: Dr. Black on 08-02-2022 Creatinine [Mass/Vol] 0.81 mg/dL 0.70-1.30 [facility] Comment on above: The validity of the calculated GFR & GFRAA in patients over 70 years has not been determined. Clinical correlation is essential. Serum or plasma hepatitis B virus surface antigen detection by immunoassayOrdered By: Dr. Black on 08-02-2022 HBV surface Ag IA Ql Negative Negative [facility] Serum or plasma urea nitroge n measurement (mass/volume)Ordered By: Dr. Black on 08-02-2022 Urea nitrogen [Mass/Vol] 20 mg/dL 7-18 [facility] Thin prep Papanicolaou smear with manual screeningOrdered By: Dr. Black on 08-02-2022 Thin prep Papanicolaou smear with manual screening 40 U/L 15-37 [facility] Thin prep Papanicolaou smear with manual screening 2 5-15 [facility] Absolute lymphocyte countOrd ered By: Dr. Black on 07-29-2022 Lymphocytes Auto (Unsp spec) [#/Vol] 0.72 10*3/uL 0.83-4.51 [facility] Basophil percentageOrdered B y: Dr. Black on 07-29-2022 Basophils/100 WBC (Bld) 0.6 % 0-1 [facility] Bilirubin [Mass/Vol] 0.70 mg/dL 0.20-1.00 [facility] Comment on above: For patients on eltr ombopag therapy, use of Dimension [place] TBIL is not recommended. Chloride [Moles/Vol] 105 mmol/L 98-107 [facility] Eosinophils/100 WBC (Bld) 3.3 % 0-5 [facility] Glucose [Mass/Vol] 104 mg/dL 74-[address] [facility] Comment on above: Fasting Glucose resu lt from 100 to 125 mg/dL suggests IMPAIRED HOMEOSTASIS per A.D.A. criteria. Neutrophils (Bld) [#/Vol] 5.5 10*3/uL 2.0-7.7 [facility] Neutrophils/100 WBC (Bld) 75.4 % 47-70 [facility] Potassium [Moles/Vol] 3.5 mmol/L 3.5-5.1 [facility] Protein [Mass/Vol] 7.5 g/dL 6.4-8.[address] [facility] Sodium [Moles/Vol] 138 mmol/L 136-[address] [facility] WBC (Bld) [#/Vol] 7.2 10*3/uL 4.4-11.[address] [facility] Blood erythrocytes count (nu mber/volume)Ordered By: Dr. Black on 07-29-2022 RBC (Bld) [#/Vol] 4.37 10*6/uL 4.6-6.2 [facility] Blood hemoglobin measurement (mass/volume)Ordered By: Dr. Black on 07-29-2022 Hemoglobin (Bld) [Mass/Vol] 13.3 g/dL 13.0-16.5 [facility] Blood lymphocytes/100 leukoc ytesOrdered By: Dr. Black on 07-29-2022 Lymphocytes/100 WBC (Bld) 10.0 % 19-41 [facility] Blood monocytes/100 leukocyt esOrdered By: Dr. Black on 07-29-2022 Monocytes/100 WBC (Bld) 9.7 % 0-10 [facility] Blood platelet mean volumeOr dered By: Dr. Black on 07-29-2022 Platelet mean volume (Bld) [Entitic vol] 11.9 fL 6.2-12.0 [facility] Determination of erythrocyte mean corpuscular volume (MCV)Ordered By: Dr. Black on 07-29-2022 MCV (RBC) [Entitic vol] 92.4 fL 80-94 [facility] Hematocrit Auto (Bld) [Volum e fraction]Ordered By: Dr. Black on 07-29-2022 Hematocrit (Bld) [Volume fraction] 40.4 % 40-54 [facility] Laboratory - Chemistry and C hemistry - challengeOrdered By: Dr. Black on 07-29-2022 ALP [Catalytic activity/Vol] 291 U/L 45-117 [facility] ALT [Catalytic activity/Vol] 203 U/L 16-61 [facility] CO2 [Moles/Vol] 25.0 mmol/L 21.0-32.0 [facility] Globulin (S) [Mass/Vol] 4.0 g/dL 2.2-4.2 [facility] Urea nitrogen/Creatinine [Mass ratio] 28.0 mg/mg 10-20 [facility] Laboratory - Hematology and Cell countsOrdered By: Dr. Black on 07-29-2022 Erythrocyte distribution width (RBC) [Entitic vol] 46.2 fL 35.1-43.[address] [facility] Erythrocyte distribution width (RBC) [Ratio] 13.4 % 11.6-14.6 [facility] Immature granulocytes/100 WBC (Bld) 1.000 % 0.0-0.9 [facility] Comment on above: IG% - Immature Granu locytes (promyelocytes, myelocytes and metamyelocytes) > 1% indicates that a LEFT SHIFT is Present. MCH (RBC) [Entitic mass] 30.4 pg 27.0-32.0 [facility] Nucleated RBC/100 WBC (Bld) [Ratio] 0 % 0-5 [facility] Auto (RBC) [Mass/Vol]Or dered By: Dr. Black on 07-29-2022 MCHC (RBC) [Mass/Vol] 32.9 g/dL 32-36 [facility] No Panel InformationOrdered By: Dr. Black on 07-29-2022 Estimated GFR (MDRD) Amer 108 mL/min >60 [facility] Comment on above: GFR Calc Estimated GFR (MDRD) Non-Af Amer 89 mL/min >60 [facility] Comment on above: Non- GFR Calc Thyroid Stimulating Hormone (TSH) 2.45 uIU/mL 0.358-3.74 [facility] Platelets bldOrdered By: Dr. Black on 07-29-2022 Platelets (Bld) [#/Vol] 175 10*3/uL 150-450 [facility] Serum or plasma albumin angela urement (mass/volume)Ordered By: Dr. Black on 07-29-2022 Albumin [Mass/Vol] 3.5 g/dL 3.2-5.[address] [facility] Serum or plasma albumin/glob ulin mass ratioOrdered By: Dr. Black on 07-29-2022 Albumin/Globulin [Mass ratio] 0.9 {ratio} 0.9-2.4 [facility] Serum or plasma calcium angela urement (mass/volume)Ordered By: Dr. Black on 07-29-2022 Calcium [Mass/Vol] 8.9 mg/dL 8.5-10.[address] [facility] Serum or plasma creatinine m easurement (mass/volume)Ordered By: Dr. Black on 07-29-2022 Creatinine [Mass/Vol] 0.89 mg/dL 0.70-1.30 [facility] Comment on above: The validity of the calculated GFR & GFRAA in patients over 70 years has not been determined. Clinical correlation is essential. Serum or plasma urea nitroge n measurement (mass/volume)Ordered By: Dr. Black on 07-29-2022 Urea nitrogen [Mass/Vol] 25 mg/dL 7-18 [facility] Thin prep Papanicolaou smear with manual screeningOrdered By: Dr. Black on 07-29-2022 Thin prep Papanicolaou smear with manual screening 130 U/L 15-37 [facility] Thin prep Papanicolaou smear with manual screening 8 5-15 [facility] COVID-19 virus antigen assay Ordered By: Dr. Black on 07-19-2022 SARS-CoV-2 (COVID-19) Ag IA.rapid Ql (Resp) Not detected Not Detect [facility] Comment on above: Normal Reference Ran ge: Not DetectedMethod:(RT-PCR) real-time reverse transcriptase PCRLuminex MIRIAM Instrument*The Food and Drug Administration (FDA) has issued an Emergency Use Authorization (EAU) for the MIRIAM SARS-CoV-2 Assay for the rapid detection of the virus that causes COVID-19. This test has been validated, but the [facility] independent review of this validation is pending.*Negative results do not preclude infection and should not be used as the sole basis for treatment or patient management. Optimum specimen types and timing for peak viral levels during infections caused by SARS-CoV-2 have not been determined. Collection of multiple specimens from the same patient may be necessary to detect the virus. The possibility of a false negative result should be considered if the patient has clinical presentation or has had recent exposure. No Panel InformationOrdered By: Ish Black on 07-19-2022 Influenza Types A,B Direct FA (CAR[facility]ITOS) [facility] No Panel InformationOrdered By: Dr. Black on 07-19-2022 Influenza Types A,B Direct FA (CARLITOS) [facility] RSV Ag EIAOrdered By: Ish sanchez on 07-19-2022 RSV Ag Immune stain Ql (Tiss) [facility] RSV Ag EIAOrdered By: Dr. Miriam sanchez on 07-19-2022 RSV Ag Immune stain Ql (Tiss) [facility] COVID-19 virus antigen assay Ordered By: Dr. Black on 07-14-2022 SARS-CoV-2 (COVID-19) Ag IA.rapid Ql (Resp) Not detected Not Detect [facility] Comment on above: Normal Reference Ran ge: Not DetectedMethod:(RT-PCR) real-time reverse transcriptase PCRLuminex MIRIAM Instrument*The Food and Drug Administration (FDA) has issued an Emergency Use Authorization (EAU) for the MIRIAM SARS-CoV-2 Assay for the rapid detection of the virus that causes COVID-19. This test has been validated, but the [facility] independent review of this validation is pending.*Negative results do not preclude infection and should not be used as the sole basis for treatment or patient management. Optimum specimen types and timing for peak viral levels during infections caused by SARS-CoV-2 have not been determined. Collection of multiple specimens from the same patient may be necessary to detect the virus. The possibility of a false negative result should be considered if the patient has clinical presentation or has had recent exposure. No Panel InformationOrdered By: Ish Black on 07-14-2022 Influenza Types A,B Direct FA (CARLITOS) [facility] No Panel InformationOrdered By: Dr. Black on 07-14-2022 Influenza Types A,B Direct FA (CARLITOS) [facility] RSV Ag EIAOrdered By: Ish sanchez on 07-14-2022 RSV Ag Immune stain Ql (Tiss) [facility] RSV Ag EIAOrdered By: Dr. Miriam sanchez on 07-14-2022 RSV Ag Immune stain Ql (Tiss) [facility] Absolute lymphocyte countOrd ered By: Dr. Black on 04-14-2022 Lymphocytes Auto (Unsp spec) [#/Vol] 0.80 10*3/uL 0.83-4.51 [facility] Basophil percentageOrdered B y: Dr. Black on 04-14-2022 Basophils/100 WBC (Bld) 0.8 % 0-1 [facility] Bilirubin [Mass/Vol] 0.40 mg/dL 0.20-1.00 [facility] Comment on above: For patients on eltr ombopag therapy, use of Dimension [place] TBIL is not recommended. Chloride [Moles/Vol] 106 mmol/L 98-107 [facility] Eosinophils/100 WBC (Bld) 1.8 % 0-5 [facility] Glucose [Mass/Vol] 111 mg/dL 74-[address] [facility] Comment on above: Fasting Glucose resu lt from 100 to 125 mg/dL suggests IMPAIRED HOMEOSTASIS per A.D.A. criteria. Neutrophils (Bld) [#/Vol] 2.6 10*3/uL 2.0-7.7 [facility] Neutrophils/100 WBC (Bld) 68.7 % 47-70 [facility] Potassium [Moles/Vol] 3.8 mmol/L 3.5-5.1 [facility] Protein [Mass/Vol] 7.1 g/dL 6.4-8.[address] [facility] Sodium [Moles/Vol] 139 mmol/L 136-[address] [facility] WBC (Bld) [#/Vol] 3.8 10*3/uL 4.4-11.[address] [facility] Blood erythrocytes count (nu mber/volume)Ordered By: Dr. Black on 04-14-2022 RBC (Bld) [#/Vol] 4.57 10*6/uL 4.6-6.2 [facility] Blood hemoglobin measurement (mass/volume)Ordered By: Dr. Black on 04-14-2022 Hemoglobin (Bld) [Mass/Vol] 14.2 g/dL 13.0-16.5 [facility] Blood lymphocytes/100 leukoc ytesOrdered By: Dr. Black on 04-14-2022 Lymphocytes/100 WBC (Bld) 20.8 % 19-41 [facility] Blood monocytes/100 leukocyt esOrdered By: Dr. Black on 04-14-2022 Monocytes/100 WBC (Bld) 7.6 % 0-10 [facility] Blood platelet mean volumeOr dered By: Dr. Black on 04-14-2022 Platelet mean volume (Bld) [Entitic vol] 11.5 fL 6.2-12.0 [facility] Determination of erythrocyte mean corpuscular volume (MCV)Ordered By: Dr. Black on 04-14-2022 MCV (RBC) [Entitic vol] 90.4 fL 80-94 [facility] Hematocrit Auto (Bld) [Volum e fraction]Ordered By: Dr. Black on 04-14-2022 Hematocrit (Bld) [Volume fraction] 41.3 % 40-54 [facility] Laboratory - Chemistry and C hemistry - challengeOrdered By: Dr. Black on 04-14-2022 ALP [Catalytic activity/Vol] 104 U/L 45-117 [facility] ALT [Catalytic activity/Vol] 34 U/L 16-61 [facility] CO2 [Moles/Vol] 26.0 mmol/L 21.0-32.0 [facility] Globulin (S) [Mass/Vol] 3.3 g/dL 2.2-4.2 [facility] Urea nitrogen/Creatinine [Mass ratio] 24.5 mg/mg 10-20 [facility] Laboratory - Hematology and Cell countsOrdered By: Dr. Black on 04-14-2022 Erythrocyte distribution width (RBC) [Entitic vol] 43.4 fL 35.1-43.[address] [facility] Erythrocyte distribution width (RBC) [Ratio] 13.2 % 11.6-14.6 [facility] Immature granulocytes/100 WBC (Bld) 0.300 % 0.0-0.9 [facility] Comment on above: IG% - Immature Granu locytes (promyelocytes, myelocytes and metamyelocytes) > 1% indicates that a LEFT SHIFT is Present. MCH (RBC) [Entitic mass] 31.1 pg 27.0-32.0 [facility] Nucleated RBC/100 WBC (Bld) [Ratio] 0 % 0-5 [facility] MCHC Auto (RBC) [Mass/Vol]Or dered By: Dr. Black on 04-14-2022 MCHC (RBC) [Mass/Vol] 34.4 g/dL 32-36 [facility] No Panel InformationOrdered By: Dr. Black on 04-14-2022 Estimated GFR (MDRD) Amer 113 mL/min >60 [facility] Comment on above: GFR Calc Estimated GFR (MDRD) Non-Af Amer 94 mL/min >60 [facility] Comment on above: Non- GFR Calc Thyroid Stimulating Hormone (TSH) 1.26 uIU/mL 0.358-3.74 [facility] Vitamin D 25-Hydroxy 27.6 ng/mL [facility] Comment on above: Vitamin D 25(OH) Sta tus Range Deficiency <20 ng/mL (50nmol/L) Insufficiency 20 - 30 ng/mL (50 - 75 nmol/L) Sufficiency 30 - 100 ng/mL (75 - 250 nmol/L) Toxicity >100 ng/mL (>250 nmol/L) Platelets bldOrdered By: Dr. Black on 04-14-2022 Platelets (Bld) [#/Vol] 174 10*3/uL 150-450 [facility] Serum or plasma albumin angela urement (mass/volume)Ordered By: Dr. Black on 04-14-2022 Albumin [Mass/Vol] 3.8 g/dL 3.2-5.[address] [facility] Serum or plasma albumin/glob ulin mass ratioOrdered By: Dr. Black on 04-14-2022 Albumin/Globulin [Mass ratio] 1.2 {ratio} 0.9-2.4 [facility] Serum or plasma calcium angela urement (mass/volume)Ordered By: Dr. Black on 04-14-2022 Calcium [Mass/Vol] 8.8 mg/dL 8.5-10.[address] [facility] Serum or plasma creatinine m easurement (mass/volume)Ordered By: Dr. Black on 04-14-2022 Creatinine [Mass/Vol] 0.86 mg/dL 0.70-1.30 [facility] Comment on above: The validity of the calculated GFR & GFRAA in patients over 70 years has not been determined. Clinical correlation is essential. Serum or plasma urea nitroge n measurement (mass/volume)Ordered By: Dr. Black on 04-14-2022 Urea nitrogen [Mass/Vol] 21 mg/dL 7-18 [facility] Thin prep Papanicolaou smear with manual screeningOrdered By: Dr. 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 ABNORMAL Invalid Interpretation Code [employer] Work Phone: [phone] GE use only - for [employer] import when terms are not otherwise specified 391 ms Invalid Interpretation Code [employer] Work Phone: [phone] P wave axis, electrocardiogram 53 deg Invalid Interpretation Code [employer] Work Phone: [phone] [place] interval, electrocardiogram 160 ms Invalid Interpretation Code [employer] Work Phone: [phone] Pulse (Heart Rate) 69 /min Invalid Interpretation Code [employer] Work Phone: [phone] QRS axis, electrocardiogram 59 deg Invalid Interpretation Code [employer] Work Phone: [phone] QRS duration, electrocardiogram 94 ms Invalid Interpretation Code [employer] Work Phone: [phone] QT interval, electrocardiogram new path ms Invalid Interpretation Code [employer] Phone: [phone] T wave axis, electrocardiogram -1 deg Invalid Interpretation Code [employer] Phone: [phone] 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-25-2014 Anion gap 5 mmol/L Invalid Interpretation Code [employer] Phone: [phone] BUN/Creatinine Ratio 20 mg/mg Invalid Interpretation Code [employer] Work Phone: [phone] Calcium 8.5 mg/dL Invalid Interpretation Code [employer] Work Phone: [phone] Chloride 104 mmol/L Invalid Interpretation Code [employer] Phone: [phone] CO2 30 mmol/L Invalid Interpretation Code [employer] Work Phone: [phone] Creatinine 0.8 mg/dL Invalid Interpretation Code [employer] Work Phone: [phone] Glucose 92 mg/dL Invalid Interpretation Code [employer] Work Phone: [phone] Hematocrit (HCT) 42.0 % Invalid Interpretation Code [employer] Work Phone: [phone] Hemoglobin (HGB) 13.7 g/dL Invalid Interpretation Code [employer] Work Phone: [phone] Platelets 298 10*3/mm3 Invalid Interpretation Code [employer] Work Phone: [phone] Potassium 4.3 mmol/L Invalid Interpretation Code [employer] Work Phone: [phone] Sodium 139 mmol/L Invalid Interpretation Code [employer] Work Phone: [phone] Urea nitrogen 16 mg/dL Invalid Interpretation Code [employer] Work Phone: [phone] WBC (Leukocytes) 8.1 10*3/uL Invalid Interpretation Code [employer] Work Phone: [phone] Office Visiton 04-10-2014 cardiac risk group B Invalid Interpretation Code [employer] Work Phone: [phone] General cardiovascular disease 10Y risk [#] Agate.D'Agostbennett 6 % Invalid Interpretation Code [employer] Work Phone: [phone] 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 04-08-2014 Alanine aminotransferase (ALT) 28 U/L Invalid Interpretation Code [employer] Work Phone: [phone] Albumin 3.4 g/dL Invalid Interpretation Code [employer] Phone: [phone] Alkaline phosphatase (ALP) 86 U/L Invalid Interpretation Code [employer] Work Phone: [phone] Aspartate aminotransferase (AST) 18 U/L Invalid Interpretation Code [employer] Work Phone: [phone] basophils as percent of blood leukocytes, manual count 0.7 % Invalid Interpretation Code [employer] Work Phone: [phone] Bilirubin (total) 0.10 mg/dL Invalid Interpretation Code [employer] Work Phone: [phone] Cholesterol 122 mg/dL Invalid Interpretation Code [employer] Work Phone: [phone] eGFR (non-black) 91 mL/min/{1.73_m2} Invalid Interpretation Code [employer] Work Phone: [phone] eGFR (non-black) 110 mL/min/{1.73_m2} Invalid Interpretation Code [employer] Work Phone: [phone] eosinophils as percent of blood leukocytes, manual count 3.3 % Invalid Interpretation Code [employer] Work Phone: [phone] Erythrocytes (RBC) 3.98 10*6/uL Low [facility] Work Phone: [phone] Globulin 2.8 g/dL Invalid Interpretation Code [employer] Work Phone: [phone] HDL Cholesterol 39 mg/dL Low [facility] Work Phone: [phone] LDL Cholesterol 69 mg/dL Invalid Interpretation Code [facility] Work Phone: [phone] Lymphocytes/100 leukocytes 33.0 % Invalid Interpretation Code [facility] Work Phone: [phone] Magnesium 1.6 mg/dL Invalid Interpretation Code [facility] Work Phone: [phone] MCH 29.1 pg Invalid Interpretation Code [facility] Work Phone: [phone] MCHC 31.7 g/dL Low [facility] [employer] Work Phone: [phone] MCV 92.0 fL Invalid Interpretation Code [facility] Work Phone: [phone] Monocytes/100 leukocytes 11.6 % High [facility] Work Phone: [phone] neutrophils, band form as percent of blood leukocytes, manual count 51.2 % Invalid Interpretation Code [facility] Work Phone: [phone] PMV by Ana 11.5 fL Invalid Interpretation Code [facility] Work Phone: [phone] Protein 6.2 g/dL Low [facility] Work Phone: [phone] RDW-CA 14.3 % Invalid Interpretation Code [facility] Work Phone: [phone] Thyroid stimulating hormone (TSH) 2.52 u[iU]/mL Invalid Interpretation Code [facility] Work Phone: [phone] Triglyceride 72 mg/dL Invalid Interpretation Code [facility] Work Phone: [phone] very low density lipoproteins 14 mg/dL Invalid Interpretation Code [facility] Work Phone: [phone] 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 Ish Black Work Phone: [facility] 09-27-2022 09:58-0400 Body mass index (BMI) [Ratio] 26.8 kg/m2 Dr. Ish Black Work Phone: [phone] [place] [address] 09-27-2022 09:58-0400 Body weight 75.[address] Ish Black Work Phone: [phone] [place] [address] 09-27-2022 09:58-0400 Diastolic blood pressure 65 mm[Hg] Dr. Ish Black Work Phone: [phone])785-881162 [place] [address] 09-27-2022 09:58-0400 Heart rate 74 /min Dr. Ish Black Work Phone: [phone])[phone] [place] [address] 09-27-2022 09:58-0400 Respiratory rate 16 /min Dr. Ish Black Work Phone: [phone])515-028962 [place] [address] 09-27-2022 09:58-0400 Systolic blood pressure 107 mm[Hg] Dr. Ish Black Work Phone: 1(674)301-019262 [place] [address] 06-01-2022 13:37-0500 Body height 167.[address] Ish Black Work Phone: [phone])466-324362 [place] [address] 06-01-2022 13:37-0500 Body mass index (BMI) [Ratio] 275.9 kg/m2 Dr. Ish Black Work Phone: [phone])978-075262 [place] [address] 06-01-2022 13:37-0500 Body weight 775.[address] Ish Black Work Phone: [phone])297-188762 [place] [address] 06-01-2022 13:37-0500 Diastolic blood pressure 83 mm[Hg] Dr. Ish Black Work Phone: [phone](884)637-985403 [place] [address] 06-01-2022 13:37-0500 Heart rate 64 /min Dr. Ish Blakc Work Phone: 8(609)188-254662 [place] [address] 06-01-2022 13:37-0500 Respiratory rate 16 /min Dr. Ish Black Work Phone: [phone])494-707062 [place] [address] 06-01-2022 13:37-0500 SaO2% (BldA) [Mass fraction] 96 % Dr. Ish Black Work Phone: [phone])190-272403 [place] [address] 06-01-2022 13:37-0500 Systolic blood pressure 122 mm[Hg] Dr. Ish Black Work Phone: [facility] 12-06-2016 11:01-0400 BMI (Body Mass Index) 26 kg/m2 [facility] Work Phone: 12-06-2016 11:01-0400 BP Diastolic 60 mm[Hg] [facility] Work Phone: 12-06-2016 11:01-0400 BP Systolic 100 mm[Hg] [facility] Work Phone: 12-06-2016 11:01-0400 Height 170.18 cm [facility] Work Phone: 12-06-2016 11:01-0400 Pulse (Heart Rate) 60 /min [facility] Work Phone: 12-06-2016 11:01-0400 Respiratory Rate 20 /min [facility] Work Phone: 12-06-2016 11:01-0400 Weight 75.3 kg [facility] Work Phone: 06-13-2016 12:59-0500 BSA (Body Surface Area) 1.85 m2 [facility] Work Phone: 05-29-2014 14:45-0500 Body Temperature 98.63 [degF] [facility] Work Phone: Encounters Encounter Date Encounter Type Care Provider Facility Start: 08-07-2024 End: 08-07-[address] Ish Black MD Work Phone: [facility] Work Phone: Start: 08-07-2024 End: 08-07-[address] Ish Black MD -Radiology, [facility] Work Phone: Start: 08-07-2024 End: 08-07-2024 ambulatory Ish Black Facility:[facility] Start: 04-25-2024 End: 04-25-[address] Ish Black MD -Laboratory, Phy Office 3rd Flr Start: 04-25-2024 End: 04-25-[address] [facility] Clint Black Facility:[facility] Start: 11-02-2023 End: 11-02-2023 ambulatory [facility] Facility:[facility] Start: 09-28-2023 End: 09-28-2023 ambulatory Randall Gregory Sherwood Facility:[facility] Start: 02-20-2023 [facility] Work [facility]: Start: 02-15-2023 End: 02-15-2023 ambulatory [facility] Work Phone: Start: 02-15-2023 End: 02-15-2023 [facility] Work [facility] Start: 10-18-2022 End: 10-18-[address] Ish Black Work Phone: [facility] Work Phone: Start: 10-18-2022 End: 10-18-[address] Ish Black Work Phone: [facility]-Laboratory Work Phone: Start: 09-27-2022 End: 09-27-[address] Ish Black Work Phone: [facility] Work Phone: Start: 08-25-2022 End: 08-25-[address] Ish Black Work Phone: [facility] Work Phone: Start: 08-25-2022 End: 08-25-[address] Ish Black Work Phone: [facility]-Laboratory, Specimen Start: 08-24-2022 End: 08-24-[address] Ish Black Work Phone: [facility] Start: 08-02-2022 End: 08-02-[address] Ish Black Work Phone: [facility] Work Phone: Start: 08-02-2022 End: 08-02-[address] Ish Black Work Phone: [facility] Office 3rd Flr Start: 08-02-2022 End: 08-02-[address] Ish Black Work Phone: [facility]-Pulmonary Services/Neurology Start: 07-29-2022 End: 07-29-[address] Ish Black Work Phone: [facility] Work Phone: Start: 07-29-2022 End: 07-29-[address] Ish Black Work Phone: [facility] Office 3rd Flr Start: 07-19-2022 End: 07-19-[address] Ish Black Work Phone: [facility] Work Phone: Start: 07-19-2022 End: 07-19-[address] Ish Black Work Phone: [facility]-Pulmonary Services/Neurology Start: 07-14-2022 End: 07-14-[address] Ish Black Work Phone: [facility] Work Phone: Start: 07-14-2022 End: 07-14-[address] [facility] Start: 06-13-2022 Non-patient / Non-visit Dr. Bubba Black Work Phone: [facility] Start: 06-13-2022 End: 06-13-[address] Ish Black Work Phone: [facility] Work Phone: Start: 06-13-2022 End: 06-13-[address] Ish Black Work Phone: [facility]-Cardiovascular Services Start: 06-01-2022 End: 06-01-[address] Ish Black Work Phone: [facility] Start: 04-14-2022 End: 04-14-2022 ambulatory [facility] Work Phone: Start: 04-14-2022 End: 04-14-2022 Patient encounter procedure [facility]-Laboratory, Phy Office 3rd Flr Procedures Date Procedure Procedure Detail Performing Clinician Start: 08-07-2024 Plain X-ray of finger Bryon Black MD Work Phone: Start: 08-07-2024 Plain x-ray of wrist Dr Greg Black MD Work Phone: Start: 02-20-2023 Coronavirus COVID-19 PCR Start: 02-15-2023 Coronavirus COVID-19 PCR Start: 02-15-2023 Influenza Types A,B Direct FA (CARLITOS) Start: 02-15-2023 Respiratory syncytia l virus antigen assay Start: 08-25-[address] Ish Black Work Phone: Start: 08-24-[address] Ish Black Work Phone: Start: 08-02-2022 Bacteria identified in Urine by Culture Dr. Ish Black Work Phone: Start: 08-02-2022 Influenza Types A,B Direct FA (CARLITOS) Dr. Ish Black Work Phone: Start: 08-02-2022 Investigation of tra nsfusion reaction Dr. Ish Black Work Phone: Start: 08-02-[address] l culture Dr. Ish Black Work Phone: Start: 08-02-2022 Respiratory syncytia l virus antigen assay Dr. Ish Black Work Phone: Start: 07-29-2022 X-ray of cervical spine Dr. Ish Black Work Phone: Start: 07-19-2022 Influenza Types A,B Direct FA (CARLITOS) Dr. Ish Black Work Phone: Start: 07-19-2022 Respiratory syncytia l virus antigen assay Dr. Ish Black Work Phone: Start: 07-14-2022 Influenza Types A,B Direct FA (CARLITOS) Dr. Ish Black Work Phone: Start: 07-14-2022 Respiratory syncytia l virus antigen assay Dr. Ish Black Work Phone: Start: 12-06-2016 End: 12-06-2016 MARQUETRY WORKER Santos Sutton MD Start: 12-06-2016 End: 12-06-2016 Follow Up Appt 1 year Santos Sutton MD Start: 06-13-2016 End: 06-13-2016 MARQUETRY WORKER Katie Stonre NP Work Phone: Start: 06-13-2016 End: 06-13-2016 Follow Up Appt 6 months Katie Stoner [employer]IOR [employer] ADMINISTRATOR Work Phone: Start: 12-01-2015 End: 12-01-2015 Electrocardiogram, beverley De La Torre i, MD Start: 12-01-2015 End: 12-01-2015 Follow Up Appt 6 months Lorenzo Simpson Start: 12-01-2015 End: 12-01-2015 MMM Santos Sutton MD Start: 11-04-2015 End: 06-02-2016 Electrocardiogram, beverley De La Torre i, MD Start: 11-04-2015 End: 06-02-2016 Follow Up Appt 6 weeks Santos Sutton MD Start: 11-04-2015 End: 06-02-2016 MMLorenzo Sutton MD Start: 10-09-2014 End: 06-02-2016 MARQUETRY WORKER Ivy Hobson PA-C Work Phone: Start: 10-09-2014 End: 06-02-2016 Follow Up Appt 6 months Ivy bland PA-C Work Phone: Start: 07-25-2014 End: 07-25-2014 Documentation of current medications Santos Sutton MD Start: 07-25-2014 End: 07-25-2014 Follow Up Appt 3 months Lorenzo Simpson Start: 07-25-2014 End: 07-25-2014 MMLorenzo Sutton MD Start: 04-10-2014 End: 04-10-2014 Follow Up Appt 6 months Lorenzo Simpson Start: 04-10-2014 End: 04-10-2014 MMLorenzo Sutton MD Bacteria identification test Dr. Ish Black Work Phone: Bacteria identified in Urine by Culture Dr. Ish Black Work Phone: Investigation of tra nsfusion reaction Dr. Ish Black Work Phone: Respiratory microbia l culture Dr. Ish Black Work Phone: Plan of Treatment Date Care Activity Detail Author Start: 07-19-2022 Viral nucleic acid assay [facility] Start: 12-07-2017 End: 12-07-2017 Appointment Appointment [facility] Work Phone: Start: 12-06-2016 End: 12-06-2016 MARQUETRY WORKER [facility] Work Phone: Start: 12-06-2016 End: 12-06-2016 Follow Up Appt 1 year Follow Up Appt 1 year [facility] Work Phone: Start: 06-13-2016 End: 06-13-2016 MARQUETRY WORKER MARQUETRY WORKER [facility] Work Phone: Start: 06-13-2016 End: 06-13-2016 Follow Up Appt 6 months Follow Up Appt 6 months [facility] Work Phone: Start: 12-01-2015 End: 12-01-2015 Electrocardiogram, complete EKG (In office) [facility] Work Phone: Start: 12-01-2015 End: 12-01-2015 Follow Up Appt 6 months Follow Up Appt 6 months [facility] Work Phone: Start: 12-01-2015 End: 12-01-2015 MMM MMM [facility] Work Phone: Start: 11-04-2015 End: 06-02-2016 Electrocardiogram, complete EKG (In office) [facility] Work Phone: Start: 11-04-2015 End: 06-02-2016 Follow Up Appt 6 weeks Follow Up Appt 6 weeks [facility] Work Phone: Start: 11-04-2015 End: 06-02-2016 MMM MMM [facility] Work Phone: Start: 10-09-2014 End: 06-02-2016 [facility] MARQUETRY WORKER [facility] Work Phone: Start: 10-09-2014 End: 06-02-2016 Follow Up Appt 6 months Follow Up Appt 6 months [facility] Work Phone: Start: 07-25-2014 End: 07-25-2014 Follow Up Appt 3 months Follow Up Appt 3 months [facility] Work Phone: Start: 07-25-2014 End: 07-25-2014 MMM MMM [facility] Work Phone: Start: 04-10-2014 End: 04-10-2014 Follow Up Appt 6 months Follow Up Appt 6 months [facility] Work Phone: Start: 04-10-2014 End: 04-10-2014 MMM MMM [facility] Work Phone: SARS-CoV-2 (COVID-19 ) Ag [Presence] in Respiratory specimen by Rapid immunoassay [facility] Payers Date Payer Category Payer Self-pay [id number] 2022 Medicare [id number] 2022 Unknown [id number] 2004 Unknown ORTIZ RULE [id number] Unknown [id number] Unknown [id number] Unknown [id number] [id number] Unknown [id number] Social History Date Type Detail Facility Start: 08-04-2021 End: 09-27-2022 Tobacco smoking status NHIS Unknown if ever smoked [facility] Start: 06-23-2014 None [facility] Start: 06-23-2014 Alone [facility] Start: 06-23-2014 Non-smoker [facility] Start: 1950 Sex Assigned At Male [facility] Start: 09-27-2022 Tobacco smoking stat us NHIS Never smoked tobacco (finding) [facility] Start: 08-12-2024 Sex Male (finding) [facility] Radiology Diagnostic study note 08-07-2024 Note Date & Type Note Facility 08-07-2024 Radiology Diagnostic study note [facility] Imaging Services [address] [place], [place] [address] Wrist min 3 Views MR#: [id number] Acct: [id number] Name: DEDRA RESTREPO Rep #: [id number] : [id number] M 74 From: Luis F Mcpherson DO PCP: Dr. Ish Black MD Status: REG C ANDREIA Study:Wrist min 3 Views Date of Exam: Exam# [id number] Ordering Dr: Ish Black MD PROCEDURE: WRIST MIN 3 VIEWS 08/07/2024 REASON FOR EXAM: PAIN TECHNIQUE: 3 views of the right wrist COMPARISON: None FINDINGS: Bones: No visible fracture. No suspicious bone lesion. Joints: Normal alignment. Soft tissues: Soft tissues are unremarkable. Other: RAD/Wrist min 3 Views IMPRESSION: NO ACUTE FRACTURE OR DISLOCATION. If acute hand or wrist trauma is suspected andinitial radiographs are negative or equivocal repeat radiographs in 10-14 days MRI without IV contrast or CT without IV contrast is usually appropriate as the next imaging study. (ACR Appropriateness Criteria: Acute Hand and Wrist Trauma 2018) Reading Location: [facility] CC: Dr. Ish Black MD ~ Podiatric Aide: Signed [facility] Radiology Diagnostic study note 08-07-2024 Note Date & Type Note Facility 08-07-2024 Radiology Diagnostic study note [facility] Imaging Services [address] [place] [address] Finger(s) Min 2 Views MR#: [id number] Acct: [id number] Name: DEDRA RESTREPO Rep #: [id number] : 1950 M 74 From: Luis F Mcpherson DO PCP: Dr. Ish Black MD Status: REG C ANDREIA Study:Finger(s) Min 2 Views Date of Exam: 08/07/24 Exam# [id number] Ordering Dr: Ish Black MD PROCEDURE: FINGER(S) MIN 2 VIEWS 08/07/2024 REASON FOR EXAM: PAIN TECHNIQUE: 3 view(s) of the right 1st digit COMPARISON: None FINDINGS: Bones: No acute fracture Joints: Normal alignment. Soft tissues: Soft tissues are unremarkable. Other: RAD/Finger(s) Min 2 Views IMPRESSION: NO ACUTE FRACTURE OR DISLOCATION. Reading Location: [facility] CC: Dr. Ish Black MD ~ Podiatric Aide: Signed [facility] Evaluation note Note Date & Type Note Facility Evaluation note No assessment information availa ble [facility] Work Phone: Evaluation note Note Date & Type Note Facility Evaluation note Diagnosis Onset Date Mitral valve prolapse acute Paroxysmal atrial fibrillation chronic [facility] Work Phone: Reason for referral (narrative) Note Date & Type Note Facility Reason for referral (narrative) No reason for referral information available [facility] Work Phone: Family History No Family History Records Found Relationship Condition Age at Onset Recorded Date/T gabriele father Malignant neoplasm Unknown mother Malignant neoplasm Unknown Advance Directives No Advanced Directives Records Found Advance Directive Response Recorded Date/ Time Advance Directives No June 23 8:10pm Living Will No May 19 9:57pm Power of Rug Hooker Hand No May 19, 2020 9:57pm Advance Directive Response Recorded Date/ Time Advance Directives No June 23 9:10pm Living Will No May 19 10:57pm Power of Rug Hooker Hand No May 19, 2020 10:57pm Advance Directive Response Recorded Date/ Time Advance Directives No June 23 9:10pm Chief Complaint and Reason for Visit Chief Complaint CP MVP Reason for Visit Mitral valve prolaps e Paroxysmal atrial fibrillation Chief Complaint CP MVP CHILLS WITHOUT FEVER CHILLS WITH OUT FEVER Reason for Visit Mitral valve prolaps e Paroxysmal atrial fibrillation Chief Complaint CP MVP CHILLS WITHOUT FEVER CHILLS WITH OUT FEVER SCREENING Reason for Visit Mitral valve prolaps e Paroxysmal atrial fibrillation Chief Complaint CP MVP CHILLS WITHOUT FEVER CHILLS WITH OUT FEVER SCREENING RUQ; ABN AST & ALT Sore throat Reason for Visit Mitral valve prolaps e Paroxysmal atrial fibrillation Chief Complaint CHILLS WITHOUT FEVER CHILLS WITH OUT FEVER SCREENING RUQ; ABN AST & ALT Sore throat 1 YR FU Reason for Visit Mitral valve prolaps e Paroxysmal atrial fibrillation Chief Complaint Chills (without feve r) CHILLS NO FEVER Chief Complaint Admit Date PAIN IN R THUMB AND WRIST August 07 3:25pm Summary Purpose Additional Source Comments Goals (unrecognized section and content) Goals may be documented in a n alternate sectionGoals may be documented in an alternate sectionGoals may be documented in an alternate sectionGoals may be documented in an alternate sectionGoals may be documented in an alternate sectionGoals may be documented in an alternate sectionGoals may be documented in an alternate sectionGoals may be documented in an alternate sectionGoals may be documented in an alternate sectionGoals may be documented in an alternate section Care Teams (unrecognized sec tion and content) Team Status: Active Member Role Status Dates Dr. Ish Black MD Family Provider Active Dr. Ish Black MD Primary Care Provider Active Team Status: Inactive Member Role Status Dates Dr. Ish Black MD Primary Care Provider, Referring Provider Active Kala Loera SENIOR CONTRACTS ADMINISTRATOR, SENIOR CONTRACTS ADMINISTRATOR-C Attending Provider Active Team Status: Active Member Role Status Dates Dr. Ish Black MD Primary Care Provider Active Dr. Santos Sutton MD Attending Provider Active Team Status: Inactive Member Role Status Dates Dr. Ish Black MD Primary Care Provider, Attending Provider Active Team Status: Inactive Member Role Status Dates Dr. Ish Black MD Primary Care Provider Active Kala Loera SENIOR CONTRACTS ADMINISTRATOR, SENIOR CONTRACTS ADMINISTRATOR-C Attending Provider Active Team Status: Active Member Role Status Dates Dr. Ish Black MD Primary Care Provider, Attending Provider Active Team Status: Inactive Member Role Status Dates Dr. Ish Black MD Primary Care Provi misa, Attending Provider, Referring Provider Active Team Status: Active Member Role Status Dates Dr. Ish Black MD Primary Care Provi misa, Attending Provider, Referring Provider Active Team Status: Inactive Member Role Status Dates Dr. Ish Black MD Primary Care Provider Active Dr. Jason Monteiro MD Attending Provider, Referring Pr ovider Active Team Status: Inactive Member Role Status Dates Dr. Ish Black MD Primary Care Provider, Referring Provider Active Dr. Santos Sutton MD Attending Provider Active Team Status: Inactive Member Role Status Dates Dr. Ish Black MD Primary Care Provider Active Start: April 25, 2024 End: April 25, 2024 Dr. Ish Black MD Attending Provider Active Start: April 25, 2024 End: April 25, 2024 Team Status: Inactive Member Role Status Dates Dr. Ish Black MD Primary Care Provider Active Start: August 07, 2024 End: August 07, 2024 Dr. Ish Black MD Attending Provider Active Start: August 07, 2024 End: August 07, 2024 Dr. Ish Black MD Referring Provider Active Start: August 07, 2024 End: August 07, 2024 (unrecognized sect ion and content) No Status Records Found INFORMATION SOURCE (unrecogn ized section and content) DATE CREATED AUTHOR 08/15/2024 [facility] FOR RECORDS PERTAINING TO PATIENTS WHO ARE OR HAVE BEEN ENROLLED IN A CHEMICAL DEPENDENCY/SUBSTANCEABUSE PROGRAM, SOME INFORMATION MAY BE OMITTED. This clinical summary was aggregated from multiple sources. Caution should be exercised in using it in the provision of clinical care. This summary normalizes information from multiple sources, and as a consequence, information in this document may materially change the coding, format and clinical context of patient data. In addition, data may be omitted in some cases. CLINICAL DECISIONS SHOULD BE BASED ON THE PRIMARY CLINICAL RECORDS. [employer] provides no warranty or guarantee of the accuracy or completeness of information in this document.
== END | disposition home or self-care (01) ==
LOC: POLAB3 13:14
PROVIDERS: PCP Family Medicine Geriatric Medicine; Visit Provider Family Medicine Geriatric Medicine
DX: E55.9 Vitamin D deficiency, unspecified (principal); Z12.5 Encounter for screening for malignant neoplasm of prostate; R53.83 Other fatigue
CPT/HCPCS: 36415; 80053; 82306; 84153; 84443; 85025; G0103

== ENCOUNTER → 2025-02-19 | Outpatient (CLI) | payer MEDICARE, OTHER, SELFPAY | END | disposition home or self-care (01) | LOC: POLAB3 14:35 | PROVIDERS: PCP Family Medicine Geriatric Medicine; Visit Provider Family Medicine Geriatric Medicine | DX: R06.2 Wheezing (principal) | CPT/HCPCS: 36415; 87631 ==